=== PATIENT | male | born 1935 | race Caucasian/White ===

== ENCOUNTER 2017-06-20 08:44 | Outpatient (CLI) | payer MEDICARE, OTHER | END 2017-06-20 08:45 | disposition home or self-care (01) | LOC: DI 08:44 | PROVIDERS: ATTEND Internal Medicine | DX: R55 Syncope and collapse (principal); R01.1 Cardiac murmur, unspecified; I51.7 Cardiomegaly | CPT/HCPCS: 93306 ==

== ENCOUNTER 2017-12-21 09:57 | Emergency (ER) | payer MEDICARE, OTHER ==
--- NOTE | 2017-12-21 10:23 | ED Physician Documentation ---
PD HPI UPPER EXT INJURY - Stated complaint Stated Complaint: R HAND SWELLING - Chief complaint Chief Complaint: Ext Problem - History obtained from History obtained from: Patient - History of Present Illness Location: Right, Wrist, Hand Type of injury: Fall Where injury occurred: Other (walking his dog on a trail 2 days ago) Timing - onset: How many days ago (2) Timing - duration: Days (2) Timing - details: Gradual onset Pain level max: 4 Pain level now: 4 Improved by: Rest, Ice, Immobilization Worsened by: Moving, Palpating Associated symptoms: Swelling, Discolored (bruising). No: Weakness, Numbness, Tingling Contributing factors: Anticoagulated (xarelto) Recently seen: Not recently seen - Additonal information Additional information: pt is right handed Review of Systems Musculoskeletal: denies: Neck pain, Back pain Neurologic: denies: Focal weakness, Numbness, Head injury PD PAST MEDICAL HISTORY - Past Medical History Past Medical History: Yes Cardiovascular: Atrial fibrillation Endocrine/Autoimmune: None : Benign prostate hypertrophy - Past Surgical History Past Surgical History: Yes General: Cholecystectomy Ortho: Knee replacement - Present Medications Home Medications: Ambulatory Orders Medication Instructions Recorded Confirmed Hydrocodone/Acetaminophen [[place] 1 each PO Q6H PRN #15 tablet 02/05/16 5-325 Tablet] Tamsulosin [Flomax] 02/05/16 Furosemide [Lasix] 12/21/17 Potassium Citrate [Urocit-K] 12/21/17 Rivaroxaban [Xarelto] 12/21/17 diltiaZEM [Cardizem] 12/21/17 - Allergies Allergies/Adverse Reactions: Allergies Allergy/AdvReac Type Severity Reaction Status Date / Time Penicillins Allergy Itching Verified 02/05/16 12:49 - Social History Does the pt smoke?: No Smoking Status: Never smoker Does the pt drink ETOH?: Yes Does the pt have substance abuse?: No - Immunizations Immunizations are current?: Yes PD ED PE NORMAL - Vitals Vital signs reviewed: Yes - General General: Alert and oriented X 3, No acute distress - HEENT HEENT: Moist mucous membranes - Derm Derm: Warm and dry - Extremities Extremities: Other (R hand/wrist - Mild swelling to the dorsum of the hand with ecchymosis to the thenar eminence as well as mild tenderness over the distal radius and ulna. Neurovascularly intact. No evidence of compartment syndrome. Brisk cap refill) - Neuro Neuro: Alert and oriented X 3 Results - Vitals Vitals: Vital Signs - 24 hr 12/21/17 12/21/17 10:04 12:07 Temperature 36.7 C 36.1 C L Heart Rate 54 L 58 L Respiratory 16 18 Rate Blood Pressure 162/82 H 156/60 H O2 Saturation 99 97 Oxygen O2 Source Room air - Rads (name of study) R hand xray Radiology: Prelim report reviewed, EMP read contemporaneously, See rad report ( Findings suggest acute nondisplaced intra-articular fracture of the distal radius. ) R wrist xray Radiology: Prelim report reviewed, EMP read contemporaneously, See rad report ( Findings suggest acute nondisplaced intra-articular fracture of the distal radius. ) Procedures - Splint (location) R wrist Splint applied by: Physician, Tech Type of splint: Fiberglass, Short arm Other: Patient tolerated well, No complications, Neurovascular intact PD MEDICAL DECISION MAKING - ED course Complexity details: reviewed results, re-evaluated patient, considered differential, d/w patient, d/w family ED course: Patient is an 82-year-old male who presents to the emergency department after a fall 2 days ago, found to have a nondisplaced intra-articular fracture of the distal radius. Placed in a fiberglass splint will have him follow-up with his doctor for this. Neurovascularly intact. No evidence of occult scaphoid fracture. Patient counseled regarding signs and symptoms for which I believe and urgent re-evaluation would be necessary. Patient with good understanding of and agreement to plan and is comfortable going home at this time This document was made in part using voice recognition software. While efforts are made to proofread this document, sound alike and grammatical errors may occur. Departure - Departure Disposition: 01 Home, Self Care Clinical Impression: Distal radius fracture, right Qualifiers: Encounter type: initial encounter Fracture type: closed Fracture morphology: other intra-articular Qualified Code(s): S52.571A - Other intraarticular fracture of lower end of right radius, initial encounter for closed fracture Condition: Good Instructions: ED Fx Forearm Radius Ulna No Redu Requ Follow-Up: OSCAR MARIE MD [Primary Care Provider] - Within 3 Days (for wound check) Comments: You have a non-displaced intra-articular fracture of the right dital radius. This should heal well, but it is important to follow up closely with your dcotor. Discharge Date/Time: 12/21/17 12:25
--- NOTE | 2017-12-21 11:02 | XRAY Report ---
EXAMS: RIGHT HAND AND WRIST RADIOGRAPHY EXAM DATE: 12/21/2017 10:37 AM. CLINICAL HISTORY: Fall 2 days ago R hand/thumb pain. Radial side wrist pain. COMPARISON: None. TECHNIQUE: 3 views of the hand and 4 views of the wrist. 7 images are provided. FINDINGS: Bones: Linear lucency through the distal radial metaphysis which extends to the articular surface. No other evidence of acute fracture. Joints: No dislocation in the hand or wrist. Moderate degenerative changes. Soft Tissues: Regional soft tissue swelling. Vascular calcifications. IMPRESSION: Findings suggest acute nondisplaced intra-articular fracture of the distal radius. [facility] Referring Provider Line: [phone] SITE ID: [id number]
--- NOTE | 2017-12-21 11:02 | XRAY Preliminary Report ---
Exam: XR WRIST 4 VIEW RT IMPRESSION: Findings suggest acute nondisplaced intra-articular fracture of the distal radius. [facility] SITE ID: [id number]
--- NOTE | 2017-12-21 11:02 | XRAY Preliminary Report ---
Exam: XR HAND 3 VIEW RT IMPRESSION: Findings suggest acute nondisplaced intra-articular fracture of the distal radius. [facility] SITE ID: [id number]
[2017-12-21 12:07] VITALS: BP 156/60
== END 2017-12-21 12:25 | disposition home or self-care (01) ==
LOC: ED 09:57
DX: S52.571A Other intraarticular fracture of lower end of right radius, initial encounter for closed fracture (principal); W18.30XA Fall on same level, unspecified, initial encounter; Y93.K1 Activity, walking an animal; I48.91 Unspecified atrial fibrillation; Z79.01 Long term (current) use of anticoagulants
CPT/HCPCS: 29125; 99283

== ENCOUNTER 2018-08-20 13:42 | Outpatient (CLI) | payer MEDICARE, OTHER | END 2018-08-20 13:43 | disposition short-term general hospital (02) | LOC: EMS 13:42 | PROVIDERS: ATTEND Surgery | DX: R53.1 Weakness (principal) | CPT/HCPCS: A0425; A0429 ==

== ENCOUNTER 2019-07-22 11:23 | Outpatient (CLI) | payer MEDICARE, OTHER | END 2019-07-22 11:24 | disposition critical access hospital (66) | LOC: EMS 11:23 | PROVIDERS: ATTEND Surgery | DX: R55 Syncope and collapse (principal) | CPT/HCPCS: A0425; A0429 ==

== ENCOUNTER 2019-07-22 11:50 | Inpatient (IN) | payer MEDICARE, OTHER ==
[2019-07-22] MEDS ORDERED: SODIUM CHLORIDE 0.9% 1,000 ML IV ONE (12:28)
[2019-07-22 12:30] LABS: BASOPHILS % (AUTO) 0.4 %; EOSINOPHILS % (AUTO) 0.4 %; HGB - HEMOGLOBIN 13.7 g/dL (14.0-18.0); LYMPHOCYTES # (AUTO) 0.5 10^3/uL (1.5-3.5); LYMPHOCYTES % (AUTO) 5.4 %; MEAN CORPUSCULAR HEMOGLOBIN 29.7 pg (27.0-31.0); MEAN CORPUSCULAR HGB CONC 33.1 g/dL (32.0-36.0); MEAN CORPUSCULAR VOLUME 89.6 fL (80.0-94.0); MEAN PLATELET VOLUME 9.8 fL (7.4-11.4); MONOCYTES # (AUTO) 0.7 10^3/uL (0.0-1.0); MONOCYTES % (AUTO) 8.6 %; NEUTROPHILS # (AUTO) 7.1 10^3/uL (1.5-6.6); NEUTROPHILS % (AUTO) 84.8 %; PLT - PLATELET COUNT 172 10^3/uL (130-450); RED BLOOD COUNT 4.62 10^6/uL (4.70-6.10); RED CELL DISTRIBUTION WIDTH 13.2 % (12.0-15.0); WHITE BLOOD COUNT 8.4 x10^3/uL (4.8-10.8)
--- NOTE | 2019-07-22 12:34 | ED Physician Documentation ---
PD HPI SYNCOPE - Stated complaint Stated Complaint: DIZZY - Chief complaint Chief Complaint: Neuro - History obtained from History obtained from: Patient, Family (daughter [phone]), EMS - History of Present Illness Timing - onset: Today (84-year-old gentleman with atrial fibrillation recurrent problems with bile duct stones. He ran out of his diltiazem a couple of days ago and picked it up. He took a double dose at 630 this morning. Pretty quickly after that started to feel lightheaded and out of it. He feels better now as long as he is supine. Has not tried to get up yet. There is no a ssociated pain, trouble breathing, chest pain, pedal edema. Reported by paramedics a temperature of 100. He denies cough, shortness of breath, recurrent urinary complaints but does note a history of dizziness due to UTI in the past.) Review of Systems Ten Systems: 10 systems reviewed and negative Constitutional: denies: Fever, Chills Cardiac: denies: Chest pain / pressure, Palpitations Respiratory: denies: Dyspnea, Cough GI: denies: Abdominal Pain, Nausea, Vomiting, Diarrhea PD PAST MEDICAL HISTORY - Past Medical History Past Medical History: Yes Cardiovascular: Atrial fibrillation Endocrine/Autoimmune: None : Benign prostate hypertrophy - Past Surgical History Past Surgical History: Yes General: Cholecystectomy Ortho: Knee replacement - Present Medications Home Medications: Ambulatory Orders Medication Instructions Recorded Confirmed Hydrocodone/Acetaminophen [[place] 1 each PO Q6H PRN #15 tablet 02/05/16 5-325 Tablet] Tamsulosin [Flomax] 02/05/16 Furosemide [Lasix] 12/21/17 Potassium Citrate [Urocit-K] 12/21/17 Rivaroxaban [Xarelto] 12/21/17 diltiaZEM [Cardizem] 12/21/17 - Allergies Allergies/Adverse Reactions: Allergies Allergy/AdvReac Type Severity Reaction Status Date / Time Penicillins Allergy Itching Verified 07/22/19 12:10 - Social History Does the pt smoke?: No Smoking Status: Never smoker Does the pt drink ETOH?: Yes Does the pt have substance abuse?: No - Family History Family history: reports: Non contributory - Immunizations Immunizations are current?: Yes PD ED PE NORMAL - Vitals Vital signs reviewed: Yes - General General: Alert and oriented X 3, No acute distress - HEENT HEENT: PERRL, EOMI - Neck Neck: Supple, no meningeal sign, No bony TTP - Cardiac Cardiac: RRR, Other (2/6 ANA LAURA LUSB) - Respiratory Respiratory: No respiratory distress, Clear bilaterally - Abdomen Abdomen: Soft, Non tender - Back Back: No CVA TTP, No spinal TTP - Derm Derm: Normal color, Warm and dry - Extremities Extremities: No edema, No calf tenderness / cord - Neuro Neuro: Alert and oriented X 3, Normal speech Results - Vitals Vitals: Vital Signs - 24 hr 07/22/19 07/22/19 07/22/19 11:53 14:45 15:45 Temperature 37.2 C 37.7 C H Heart Rate 64 76 Respiratory 18 16 Rate Blood Pressure 198/68 H 150/63 H O2 Saturation 96 97 07/22/19 07/22/19 07/22/19 16:05 17:55 18:00 Temperature 102.8 C H Heart Rate 95 66 67 Respiratory 20 12 Rate Blood Pressure 137/110 H 124/44 L O2 Saturation 90 L 94 07/22/19 07/22/19 07/22/19 18:15 19:01 20:56 Temperature 39.3 C H Heart Rate 63 55 L 50 L Respiratory 16 14 16 Rate Blood Pressure 120/46 L 114/38 L 135/51 H O2 Saturation 97 98 97 07/22/19 21:52 Temperature 37.1 C Heart Rate Respiratory Rate Blood Pressure O2 Saturation Oxygen O2 Source Room air - EKG (time done) 1202 Rate: Rate (enter#) (62) Rhythm: NSR [place]: Normal Intervals: Prolonged FL Ischemia: Non specific changes Computer interpretation: Agree with computer - Labs Labs: Laboratory Tests 07/22/19 07/22/19 07/22/19 12:15 12:15 12:15 WBC 8.4 RBC 4.62 L Hgb 13.7 L Hct 41.4 L MCV 89.6 MCH 29.7 MCHC 33.1 RDW 13.2 Plt Count 172 MPV 9.8 Neut # (Auto) 7.1 H Lymph # (Auto) 0.5 L [place] # (Auto) 0.7 Eos # (Auto) 0.0 Baso # (Auto) 0.0 Absolute Nucleated RBC 0.00 Nucleated RBC % 0.0 Sodium 134 L Potassium 4.3 Chloride 99 L Carbon Dioxide 27 Anion Gap 8.0 BUN 17 Creatinine 1.0 Estimated GFR (MDRD) 72 L Glucose 129 H Lactic Acid Calcium 9.4 Total Bilirubin 0.7 AST 30 ALT 29 Alkaline Phosphatase 76 Troponin I High Sens 23.3 H* B-Natriuretic Peptide Total Protein 7.3 Albumin 4.1 Globulin 3.2 Albumin/Globulin Ratio 1.3 Lipase 30 Urine Color Urine Clarity Urine pH Ur Specific [place] Urine Protein Urine Glucose (UA) Urine Ketones Urine Occult Blood Urine Nitrite Urine Bilirubin Urine Urobilinogen Ur Leukocyte Esterase Ur Microscopic Review Urine Culture Comments Influenza A (Rapid) Influenza B (Rapid) 07/22/19 07/22/19 07/22/19 14:19 14:31 16:05 WBC RBC Hgb Hct MCV MCH MCHC RDW Plt Count MPV Neut # (Auto) Lymph # (Auto) [place] # (Auto) Eos # (Auto) Baso # (Auto) Absolute Nucleated RBC Nucleated RBC % Sodium Potassium Chloride Carbon Dioxide Anion Gap BUN Creatinine Estimated GFR (MDRD) Glucose Lactic Acid Calcium Total Bilirubin AST ALT Alkaline Phosphatase Troponin I High Sens 28.8 H* B-Natriuretic Peptide Total Protein Albumin Globulin Albumin/Globulin Ratio Lipase Urine Color YELLOW Urine Clarity CLEAR Urine pH 8.5 H Ur Specific [place] 1.015 Urine Protein TRACE Urine Glucose (UA) NEGATIVE Urine Ketones TRACE Urine Occult Blood NEGATIVE Urine Nitrite NEGATIVE Urine Bilirubin NEGATIVE Urine Urobilinogen 1 (NORMAL) Ur Leukocyte Esterase NEGATIVE Ur Microscopic Review NOT INDICATED Urine Culture Comments NOT INDICATED Influenza A (Rapid) Negative Influenza B (Rapid) Negative 07/22/19 07/22/19 07/22/19 16:13 21:10 21:10 WBC 9.1 RBC 4.13 L Hgb 12.1 L Hct 37.1 L MCV 89.8 MCH 29.3 MCHC 32.6 RDW 13.2 Plt Count 149 MPV 9.3 Neut # (Auto) 7.2 H Lymph # (Auto) 0.7 L [place] # (Auto) 1.1 H Eos # (Auto) 0.0 Baso # (Auto) 0.0 Absolute Nucleated RBC 0.00 Nucleated RBC % 0.0 Sodium 135 Potassium 4.3 Chloride 103 Carbon Dioxide 24 Anion Gap 8.0 BUN 16 Creatinine 0.9 Estimated GFR (MDRD) 81 L Glucose 151 H Lactic Acid 4.4 H* Calcium 8.3 L Total Bilirubin 0.9 AST 42 ALT 40 Alkaline Phosphatase 67 Troponin I High Sens B-Natriuretic Peptide Total Protein 6.0 L Albumin 3.3 Globulin 2.7 Albumin/Globulin Ratio 1.2 Lipase 28 Urine Color Urine Clarity Urine pH Ur Specific [place] Urine Protein Urine Glucose (UA) Urine Ketones Urine Occult Blood Urine Nitrite Urine Bilirubin Urine Urobilinogen Ur Leukocyte Esterase Ur Microscopic Review Urine Culture Comments Influenza A (Rapid) Influenza B (Rapid) 07/22/19 07/22/19 21:10 21:10 WBC RBC Hgb Hct MCV MCH MCHC RDW Plt Count MPV Neut # (Auto) Lymph # (Auto) [place] # (Auto) Eos # (Auto) Baso # (Auto) Absolute Nucleated RBC Nucleated RBC % Sodium Potassium Chloride Carbon Dioxide Anion Gap BUN Creatinine Estimated GFR (MDRD) Glucose Lactic Acid 0.7 Calcium Total Bilirubin AST ALT Alkaline Phosphatase Troponin I High Sens B-Natriuretic Peptide 365 H Total Protein Albumin Globulin Albumin/Globulin Ratio Lipase Urine Color Urine Clarity Urine pH Ur Specific [place] Urine Protein Urine Glucose (UA) Urine Ketones Urine Occult Blood Urine Nitrite Urine Bilirubin Urine Urobilinogen Ur Leukocyte Esterase Ur Microscopic Review Urine Culture Comments Influenza A (Rapid) Influenza B (Rapid) - Rads (name of study) 2v chest Radiology: EMP read contemporaneously (Possible right hilar mass) CT A/P Radiology: EMP read contemporaneously (pneumobilia constipation, enlg prostate, 10mm RML nodule needing followup) PD MEDICAL DECISION MAKING - ED course ED course: 84-year-old gentleman with presyncope after taking a double dose of diltiazem this morning. There was no chest pain or trouble breathing. Work-up was negative except for a very mildly elevated troponin which was repeated after 2 hours and went up a little bit and therefore the case was discussed by phone with Dr. Campbell on-call for his risk developer in [place] who felt that given the lack of angina etc. the elevation was so mild that it could be safely ignored but should follow-up with his risk developer as an outpatient. However subsequent to that he became quite febrile and having Rigors, lactate and a flu swab were sent and the discharge was held. He was administered Tyleno l. Flu swab was negative, lactate was 4-1/2. He also became hypoxic down to 90 with a [address] showing pneumobilia of unclear age, I presume this is old from prior manipulation of the bile duct, however there are no priors here to compare it with. Case discussed by phone with Dr. Knowles, the surgeon who recommended at least finding out if the pneumobilia was new or old with prior records from [place] and also briefly with the hospitalist here, Dr. Campos who felt that given the complexity of the case he should probably be transferred regardless of the acuity of the pneumobilia given the likely need for GI consultation. Somewhere in there he was administered IV fluids, cefepime, vancomycin, and Flagyl for unknown source sepsis. The fluids were stopped as he became hypoxic though. There is a significant delay in potential transfer to [place] because beds were "tight." They were originally called around 6 PM. As such repeat labs were ordered showing mild hypocalcemia, significant improvement in the lactic acidosis. Still no elevation in the liver enzymes. At about 9:50 PM I spoke with Dr. Wilks, the hospitalist in [place]. He was not sure that GI would need to intervene and if so he was actually wondering if they would actually have ERCP coverage tomorrow because I guess they do not have ERCP coverage every day. He encouraged me to talk with the GI physician on- call which is reasonable and the transfer center is paging that person. I spoke with Dr. Alicia, on-call GI in [place] who reviewed his records and we discussed his labs and findings from today. Dr. Alicia felt like he did not need any GI intervention at this juncture, nor did he need to be transferred. He does recommend following the liver enzymes in case they bump but they were normal at this point. On his review of the old work-up, the pneumobilia is chronic and they have seen it on several imaging studies there. Spoke with Dr. Betts for admission here at 11 PM. Updated the daughter by phone so she knows not to go to [place] tomorrow. - Critical Care Time(min): 40 Time Includes: Direct patient care, Review records, Reassess patient, Document care, Coordinate care, Medical consult, Family consult for tx dec Data interpretation: Labs, Pulse ox Procedures excluded from critical care time: EKG Departure - Departure Disposition: 66 [facility] DC/Xfer Clinical Impression: Near syncope, Pneumobilia Sepsis Qualifiers: Sepsis type: sepsis due to unspecified organism Sepsis acute organ dysfunction status: without acute organ dysfunction Qualified Code(s): A41.9 - Sepsis, unspecified organism Condition: Serious Record reviewed to determine appropriate education?: Yes Instructions: ED Near Syncope Unkn Comments: Followup with Dr Queen, next available appointment. Return for New or worsening symptoms. Do not double up on your medications again. Drink plenty fluids. You have a middle lobe lung nodule, please follow up with your PCP to discuss follow up imaging.
[2019-07-22 12:41] LABS: ALBUMIN 4.1 g/dL (3.2-5.5); ALBUMIN/GLOBULIN RATIO 1.3 (1.0-2.2); BILIRUBIN,TOTAL 0.7 mg/dL (0.2-1.0); CALCIUM 9.4 mg/dL (8.5-10.3); TOTAL PROTEIN 7.3 g/dL (6.7-8.2)
--- NOTE | 2019-07-22 13:55 | XRAY Report ---
Reason: fever Procedure Date: 07/22/2019 Accession Number: [id number] / [id number] Procedure: XR - Chest 2 View X-Ray CPT Code: 04307 Final Report FULL RESULT: EXAM: CHEST RADIOGRAPHY EXAM DATE: 07/22/2019 01:12 PM. CLINICAL HISTORY: Fever. COMPARISON: XR ACUTE ABDOMEN SERIES 11/05/2012 12:11 AM. TECHNIQUE: 2 views. FINDINGS: Lungs/Pleura: Lung lungs are low. Linear basilar opacities unchanged and could reflect atelectasis or possibly mild infection.. No other focal consolidation. No pneumothorax. No pleural effusion is seen. Mediastinum: Stable heart and mediastinum. Right hilar nodularity could reflect superposition of vessels. Other: None. IMPRESSION: 1. Low lung volumes with linear basilar opacities that could reflect atelectasis or possibly mild pneumonia. 2. Apparent right hilar nodularity could reflect superimposition of vessels. Nonemergent follow-up with chest CT could be obtained to exclude possibility of hilar mass. [facility]
[2019-07-22 14:54] LABS: BILIRUBIN,URINE NEGATIVE (NEGATIVE); GLUCOSE, URINE (UA) NEGATIVE (NEGATIVE); KETONES,URINE (UA) TRACE mg/dL (NEGATIVE); LEUKOCYTE ESTERASE, URINE NEGATIVE (NEGATIVE); NITRITE,URINE NEGATIVE (NEGATIVE); OCCULT BLOOD,URINE NEGATIVE (NEGATIVE); PH,URINE 8.5 PH (5.0-7.5); PROTEIN,URINE TRACE mg/dL (NEGATIVE); UROBILINOGEN,URINE 1 (NORMAL) E.U./dL (NORMAL)
[2019-07-22 14:55] LABS: CLARITY,URINE CLEAR (CLEAR)
[2019-07-22] MEDS ORDERED: ACETAMINOPHEN 325 MG TABLET PO STA ×2 (16:02→20:54)
[2019-07-22] MEDS ORDERED: LACTATED RINGERS 2,449.41 ML IV STA (16:37)
[2019-07-22] MEDS ORDERED: VANCOMYCIN INJ 1.5 GM in SODIUM CHLORIDE 0.9% 500 ML IV STA (16:40)
[2019-07-22] MEDS ORDERED: CEFEPIME 2 GM in SODIUM CHLORIDE 0.9% MINIBAG 100 ML IV STA (16:40)
[2019-07-22] MEDS ORDERED: ONDANSETRON 4 MG/2 ML VIAL IVP STA (16:44)
[2019-07-22] MEDS ORDERED: IOVERSOL 320 100 ML VIAL IVP ONE ×2 (16:46→17:48)
--- NOTE | 2019-07-22 18:06 | CT Report ---
Reason: IV only, abd pain fever Procedure Date: 07/22/2019 Accession Number: [id number] / [id number] Procedure: CT - Abdomen/Pelvis W CPT Code: Final Report FULL RESULT: EXAM: CT ABDOMEN AND PELVIS EXAM DATE: 07/22/2019 05:23 PM. CLINICAL HISTORY: IV only, abd pain fever. COMPARISONS: None. TECHNIQUE: Routine helical CT imaging was performed through the abdomen and pelvis. IV contrast: OPTI 320 100ML. Enteric contrast: No. Reconstructions: Coronal and sagittal. In accordance with CT protocol optimization, one or more of the following dose reduction techniques were utilized for this exam: automated exposure control, adjustment of mA and/or KV based on patient size, or use of iterative reconstructive technique. FINDINGS: Lung Bases: There is a right middle lobe round pulmonary nodule measuring 10 mm in diameter. Liver: There is mild to moderate intrahepatic biliary dilatation. There is pneumobilia within the liver. Left lobe of the liver is small in size. Gallbladder/Bile Ducts: Gallbladder is absent. There is fluid and gas within the common bile duct. Common bile duct measures up to 16 mm in diameter. Spleen: Normal. Pancreas: Normal. Adrenal Glands: Normal. Kidneys: Normal. No masses or hydronephrosis. Peritoneal Cavity/Bowel: The stomach and small bowel appear nondilated. There are scattered increased stool present throughout the colon. No mechanical bowel obstruction or transition zone. No free air or abscess. Pelvic Organs: Urinary bladder is unremarkable. The prostate appears enlarged measuring 50 x 72 x 64 mm. There are bilateral fat-containing inguinal hernias. Vasculature: There is moderate calcification of the abdominal aorta. Bones: There is chronic moderate degenerative disk disease of the mid and upper lumbar spine. Other: None. IMPRESSION: 1. Biliary dilatation and pneumobilia in the setting of prior cholecystectomy. Findings could represent the sequela of sphincterotomy or other biliary procedure. 2. Constipation. 3. No abscess. No other localizing acute inflammatory process in the abdomen or pelvis. 4. Enlarged prostate. 5. Bilateral fat-containing inguinal hernias. 6. 10 mm incidental right middle lobe lung nodule. Differential diagnosis including inflammatory nodular pneumonia versus old granulomatous disease versus bronchogenic carcinoma. Consider 3 month follow-up noncontrast chest CT, unless other imaging can document stability. [facility]
[2019-07-22] MEDS ORDERED: metroNIDAZOLE 500 MG/100 ML 500 MG/100 ML BAG IV ONE (18:16)
[2019-07-22 21:14] LABS: BASOPHILS % (AUTO) 0.3 %; HGB - HEMOGLOBIN 12.1 g/dL (14.0-18.0); LYMPHOCYTES # (AUTO) 0.7 10^3/uL (1.5-3.5); LYMPHOCYTES % (AUTO) 7.2 %; MEAN CORPUSCULAR HEMOGLOBIN 29.3 pg (27.0-31.0); MEAN CORPUSCULAR HGB CONC 32.6 g/dL (32.0-36.0); MEAN CORPUSCULAR VOLUME 89.8 fL (80.0-94.0); MEAN PLATELET VOLUME 9.3 fL (7.4-11.4); MONOCYTES # (AUTO) 1.1 10^3/uL (0.0-1.0); NEUTROPHILS # (AUTO) 7.2 10^3/uL (1.5-6.6); NEUTROPHILS % (AUTO) 80.1 %; PLT - PLATELET COUNT 149 10^3/uL (130-450); RED BLOOD COUNT 4.13 10^6/uL (4.70-6.10); RED CELL DISTRIBUTION WIDTH 13.2 % (12.0-15.0); WHITE BLOOD COUNT 9.1 x10^3/uL (4.8-10.8)
[2019-07-22 21:28] LABS: ALBUMIN 3.3 g/dL (3.2-5.5); ALBUMIN/GLOBULIN RATIO 1.2 (1.0-2.2); BILIRUBIN,TOTAL 0.9 mg/dL (0.2-1.0); CALCIUM 8.3 mg/dL (8.5-10.3); CREATININE 0.9 mg/dL (0.6-1.2)
[2019-07-22] MEDS ORDERED: ONDANSETRON 4 MG/2 ML VIAL IVP PRN (23:21)
[2019-07-22] MEDS ORDERED: SODIUM CHLORIDE FLUSH 0.9% 10 ML SYRINGE IVP PRN (23:21)
[2019-07-22] MEDS ORDERED: ACETAMINOPHEN 325 MG TABLET PO PRN (23:21)
--- NOTE | 2019-07-22 23:38 | HISTORY & PHYSICAL EXAMINATION ---
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 He states he has been in his usual state of health this past few days. He had run out of his diltiazem a couple of days ago and so he picked it up from the pharmacy and took an extra dose this morning. He also takes flecainide but he would cannot recall what the dose of it is and that he only takes it daily. He is on Xarelto for anticoagulation but he has not taken that today. He said he felt well initially but a couple hours later shakiness began. He denied any fevers or chills along with no chest pain, dyspnea, nausea, vomiting. He also denied dizziness and lightheadedness. He states he has no abdominal pain or dysuria. He states that he currently feels back to his baseline. He did have the flu vaccine this year. He states he has had similar episodes of shakiness in the past and it was associated with sepsis. He states his last episode of sepsis was secondary to his gallbladder and liver. He cannot recall when this episode was. He did state that he underwent biliary stenting on June 24 at [place]. His caregiver assisted living is Dr. Wall and he has not followed up since that time. He had his gallbladder removed in his early 30s due to multiple gallstones. He states he did well for quite a period of time up until about the last 10 to 15 years when he has had multiple endoscopies and interventions for biliary obstruction. Upon his arrival to the emergency department, he was found to be afebrile with a temperature of 37.2. Heart rate was 64. He was initially hypertensive with a systolic blood pressure of 198/68. He was not tachypneic and saturating well on room air. Initial labs were unremarkable except for high-sensitivity troponin of 23.3. His EKG at that time showed a sinus rhythm with a prolonged GA interval. There were no obvious ischemic changes. Repeat troponin approximately 2 hours later was increased to 28.8. 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 The patient was about to be discharged home when he developed a fever of 39.3 with associated rigors. Repeat labs were drawn which were once again unremarkable except for a lactic acid of 4.4. He was given vancomycin, cefepime, Flagyl IV and IV hydration. He then became hypoxic and so the IV fluids were discontinued. A CT of the abdomen and pelvis was then performed which showed biliary dilatation and pneumobilia as well as a 10 mm incidental right middle lobe lung nodule. The emergency room physician then spoke with gastroenterology at [place] regarding transfer. The caregiver assisted living discussed the case with the ER physician and felt that transfer was not ivan anted at this time as the patient's LFTs are within normal limits and that no intervention will be done. Environmental Science Technician reviewed prior imaging and states pneumobilia is chronic and has been present on multiple prior imaging studies per. He recommended admission and trending of the LFTs. Given this recommendation, medicine was consulted for admission. I did speak with the patient regarding goals of care and he would like to be a full code at this time. History - Past Medical History Cardiovascular: reports: Atrial fibrillation Respiratory: reports: None Neuro: reports: None Endocrine/Autoimmune: reports: None GI: reports: Other (Biliary obstruction) : reports: Benign prostate hypertrophy MRSA Hx?: No - Past Surgical History General: reports: Cholecystectomy, EGD, Other (Multiple ERCPs with biliary stenting) Ortho: reports: Knee replacement - Family & Social History Family History Comment/Other: He reports his father from sepsis. His mother from a myocardial infarction. He reports no other family history. Living arrangement: At home Living Situation: Alone Social History Notes: He lives alone at home with his dog. 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 He is a non-smoker and has never smoked in his life. He also does not drink alcohol. - Substance History Use: Uses substance without health or social issues: NONE - POLST Patient has POLST: No Meds/Allgy - Home Medications Home Medications: Ambulatory Orders Medication Instructions Recorded Confirmed Hydrocodone/Acetaminophen [[place] 1 each PO Q6H PRN #15 tablet 02/05/16 5-325 Tablet] Tamsulosin [Flomax] 02/05/16 Furosemide [Lasix] 12/21/17 Potassium Citrate [Urocit-K] 12/21/17 Rivaroxaban [Xarelto] 12/21/17 diltiaZEM [Cardizem] 12/21/17 Flecainide [Tambocar] 07/22/19 - Allergies Allergies/Adverse Reactions: Allergies Allergy/AdvReac Type Severity Reaction Status Date / Time Penicillins Allergy Itching Verified 07/22/19 12:10 Review of Systems - Constitutional Constitutional: reports: Other (Rigors). denies: Fatigue, Fever, Chills, Malaise, Weakness, Poor appetite - Cardiovascular Cariovascular: denies: Palpitations, Chest pain, Lightheadedness, Exertional dyspnea, Decr. exercise tolerance - Respiratory Respiratory: denies: Cough, SOB at rest, SOB with exertion - Gastrointestinal Gastrointestinal: denies: Abdominal pain, Constipation, Diarrhea, Change in bowel habits, Nausea, Vomiting - Genitourinary Genitourinary: denies: Dysuria, Frequency, Urgency, Hematuria - Musculoskeletal Musculoskeletal: denies: Muscle weakness - Integumentary Integumentary: denies: Rash - Neurological Neurological: denies: General weakness, Focal weakness, Dizziness - All Other Systems All Other Systems: reports: Reviewed and negative Prior Level of Functionality: He lives alone and is independent with his ADLs. Exam - Vital Signs Reviewed Vital Signs: Yes Vital Signs: Vital Signs x48h Temp Pulse Resp BP Pulse Ox 07/22/19 21:52 37.1 C 07/22/19 20:56 50 L 16 135/51 H 97 07/22/19 19:01 39.3 C H 55 L 14 114/38 L 98 07/22/19 18:15 63 16 120/46 L 97 07/22/19 18:00 67 12 124/44 L 94 07/22/19 17:55 66 90 L 07/22/19 16:05 102.8 C H 95 20 137/110 H 07/22/19 15:45 37.7 C H - Physical Exam General Appearance: positive: No acute distress, Alert Eyes Bilateral: positive: Normal inspection ENT: positive: ENT inspection nml Neck: positive: Nml inspection Respiratory: positive: No respiratory distress, Breath sounds nml. negative: Wheezes, Rales, Rhonchi Cardiovascular: positive: Regular rate & rhythm, No murmur, Bradycardia. negative: Irregularly irregular, Tachycardia, Systolic murmur, Diastolic murmur Abdomen: positive: Non-tender, No distention, Other (Prior abdominal incision scar noted.). negative: Tenderness, Guarding, Rebound Skin: positive: No rash, Warm, Dry Extremities: positive: Full ROM, No pedal edema Neurologic/Psychiatric: positive: Oriented x3. negative: Disoriented to person, Disoriented to place, Disoriented to time, Weakness Sepsis Event Note (H) - Evaluation Current Stage of Sepsis: Sepsis Possible source of Sepsis: positive: Unknown - Sepsis Criteria Sepsis Criteria: Recorded Temperature greater than 38.3C or Less than 36C, Metabolic: lactate > 2 mmol/L Conclusion/Plan - Problem List (1) Fever Conclusion/Plan: Although he does not quite meet SIRS criteria, the concern is for sepsis given his fever, elevated lactic acid, and rigors. His white count is within normal limits but he does have a left shift so this could be an early response to infection. There is no obvious source at this time as his urinalysis is unremarkable and influenza is negative. His chest x-ray is not really suggestive of pneumonia or infiltrate and he does not have a cough or dyspnea. CT of the abdomen/pelvis did show pneumobilia although after discussion with gastroenterology, this appears to be chronic. It is a little concerning that he states he has had similar symptoms in the past when he has had abdominal problems including biliary obstruction. We will start him on empiric antibiotic coverage with vancomycin, cefepime, Flagyl IV. We will follow-up his blood cultures. Trend his white count and monitor his LFTs. We will continue IV hydration with lactated Ringer's at 100 cc an hour as he is no longer hypoxic and is saturating 99% on room air. If he spikes another fever despite antibiotics, will start him on empiric Tamiflu for possible influenza despite the negative rapid influenza test Qualifiers: Fever type: unspecified Qualified Code(s): R50.9 - Fever, unspecified (2) Pneumobilia Conclusion/Plan: This is evident on the CT of the abdomen and pelvis. The emergency room physician did discuss this with gastroenterology at [place] and he states this is chronic. Given that his LFTs are normal, they do not feel transfer or intervention is warranted at this time. We will trend his LFTs and if they ri se, will discuss with gastroenterology once again regarding transfer. Will start him on a clear liquid diet for the time being. (3) Paroxysmal atrial fibrillation Conclusion/Plan: He is currently in a sinus rhythm. Although he did take an extra dose with Ca rdizem this morning, his heart rate was in the 70s when he presented to emergency department. He is now in the 50s and does dip down into the 40s while asleep. He is asymptomatic. Given his current heart rate, will hold his Cardizem for the time being. Will need to confirm Flecainide dose before resuming. We will continue to monitor him on telemetry. We will also hold his Xarelto for the time being in case his LFTs begin to rise as then he would require transfer and possible intervention. (4) Elevated troponin Conclusion/Plan: Troponins are elevated in the 20s but he is without chest pain and his EKG shows no signs of obvious ischemia. Suspect this is likely demand ischemia and given the concern for sepsis, this is likely the cause of the troponin leak. We will continue to trend his troponin and monitor on telemetry. (5) Right middle lobe pulmonary nodule Conclusion/Plan: This is an incidental finding on the CT of the abdomen and pelvis. Although he is a non-smoker, the concern is still for malignancy. I did discuss with the patient that he will need a repeat CT of the chest in 3 months. (6) BPH (benign prostatic hyperplasia) Conclusion/Plan: Stable. We will resume his home Flomax in the morning. - Lab Results Lab results reviewed: Yes Fish Bones: 07/22/19 21:10 07/22/19 21:10 - Diagnostic Imaging Results Diagnostic Imaging Results: positive: Final report reviewed - EKG Results EKG Interpreted Independently: Yes EKG Comparison: No prior EKG EKG Findings: His EKG shows sinus rhythm with a prolonged GA interval and no obvious ST segment changes. Core Measures - Anticipated LOS I expect patient to be DC'd or transferred within 96 hours.: Yes - Issues Hospital Issues and Management Plan: This is an 84-year-old gentleman admitted for suspected sepsis of unclear source at this time. Will initiate broad-spectrum antibiotics and follow-up with blood cultures. No obvious source at this time. He does have pneumobilia on imaging of the CT abdomen/pelvis and we will monitor his LFTs. - DVT/VTE - Prophylaxis VTE/DVT Device ordered at admit?: Yes VTE/DVT Prophylaxis med ordered at admit?: No Not Ordered - Medical Reason: Not indicated
[2019-07-22] MEDS ORDERED: VANCOMYCIN PER PHARMACY 100 GM in SODIUM CHLORIDE 0.9% 250 ML IV SCH (23:45)
[2019-07-23] MEDS: SODIUM CHLORIDE FLUSH 0.9% 10 ML SYRINGE IVP SCH ×3 (00:25→17:52)
[2019-07-23] MEDS: LACTATED RINGERS 1,000 ML IV SCH ×3 (00:25→22:14)
[2019-07-23] MEDS: metroNIDAZOLE 500 MG/100 ML 500 MG/100 ML BAG IV SCH ×3 (02:49→20:37)
[2019-07-23] MEDS: CEFEPIME 2 GM in SODIUM CHLORIDE 0.9% MINIBAG 100 ML IV SCH ×2 (05:18→17:52)
[2019-07-23 05:38] LABS: BASOPHILS # (AUTO) 0.1 10^3/uL (0.0-0.1); BASOPHILS % (AUTO) 0.5 %; EOSINOPHILS # (AUTO) 0.1 10^3/uL (0.0-0.7); EOSINOPHILS % (AUTO) 0.7 %; HGB - HEMOGLOBIN 12.3 g/dL (14.0-18.0); LYMPHOCYTES # (AUTO) 1.1 10^3/uL (1.5-3.5); LYMPHOCYTES % (AUTO) 10.5 %; MEAN CORPUSCULAR HEMOGLOBIN 28.7 pg (27.0-31.0); MEAN CORPUSCULAR HGB CONC 32.1 g/dL (32.0-36.0); MEAN CORPUSCULAR VOLUME 89.5 fL (80.0-94.0); MEAN PLATELET VOLUME 9.6 fL (7.4-11.4); MONOCYTES # (AUTO) 0.9 10^3/uL (0.0-1.0); MONOCYTES % (AUTO) 9.3 %; NEUTROPHILS % (AUTO) 78.5 %; PLT - PLATELET COUNT 156 10^3/uL (130-450); RED BLOOD COUNT 4.28 10^6/uL (4.70-6.10); RED CELL DISTRIBUTION WIDTH 13.5 % (12.0-15.0); WHITE BLOOD COUNT 10.2 x10^3/uL (4.8-10.8)
[2019-07-23 05:54] LABS: HB2 TOTAL 12.6 g/dL; HEMOGLOBIN A1C 0.51 g/dL; HEMOGLOBIN A1C % 5.9 % (4.6-6.2)
[2019-07-23 05:59] LABS: ALBUMIN 3.2 g/dL (3.2-5.5); BILIRUBIN,DIRECT 0.1 mg/dL (0.1-0.5); BILIRUBIN,TOTAL 0.7 mg/dL (0.2-1.0); CALCIUM 8.2 mg/dL (8.5-10.3); CREATININE 0.9 mg/dL (0.6-1.2); MAGNESIUM 2.2 mg/dL (1.7-2.8); PHOSPHORUS 2.8 mg/dL (2.5-4.6)
[2019-07-23] MEDS ORDERED: ASPIRIN CHEW 81 MG TABLET PO STA (06:21)
[2019-07-23] MEDS ORDERED: GADOBUTROL 10 MMOL/10 ML VIAL ONE (11:51)
[2019-07-23] MEDS ORDERED: VANCOMYCIN INJ 1 GM in SODIUM CHLORIDE 0.9% 250 ML IV SCH (12:00)
--- NOTE | 2019-07-23 13:00 | PHARMACY PROGRESS NOTE ---
- Best Possible Medication History Admit Date and Time: 07/22/19 1732 Processed by: Pharmacy Medication History completed: Yes Patient Interview: Completed Secondary Source(s): Physician records Patient used to take Potassium and Furosemide but has not had to take them and they are currently not on PCP medlist. As the person ultimately responsible for medication therapy, providers are able to order a medication from an existing home medication list in [facility] via the "Reconcile Routine" prior to Confirmation of that medication by sales support associate. Such practice is discouraged except when the physician, in their clinical judgment, deems that a medical need exists for a medication without regard to previous use.
--- NOTE | 2019-07-23 14:57 | Ultrasound Report ---
Reason: Sepsis. Biliary dilatation on CT. Procedure Date: 07/23/2019 Accession Number: [id number] / [id number] Procedure: US - Abdomen Complete CPT Code: Addended Final Report FULL RESULT: EXAM: ABDOMEN ULTRASOUND EXAM DATE: 07/23/2019 08:50 AM. CLINICAL HISTORY: Sepsis. Biliary dilatation on CT. COMPARISON: ABDOMEN/PELVIS W/ 07/22/2019 5:18 PM. TECHNIQUE: Real-time scanning was performed with static images obtained. FINDINGS: Liver: The liver is mildly enlarged with no focal lesions. 15.8 cm. Main portal vein flow: Hepatopetal. Gallbladder: Status post cholecystectomy with mild pneumobilia and mild intrahepatic biliary ductal dilatation. Biliary System: Common bile duct is not visualized. Pancreas: Not visualized. Kidneys: Right: 10.9 cm longitudinally. Normal. No contour-deforming mass, stones, or hydronephrosis. Simple appearing cystic structure in the right kidney measuring up to 12 x 10 x 7 mm. Left: 11.9 cm longitudinally. Normal. No contour-deforming mass, stones, or hydronephrosis. Spleen: 9.8 cm. Normal in size and echotexture. Aorta and Inferior Vena Cava: The proximal and mid aorta are not visualized. The distal aorta and visualized portion of the IVC are unremarkable. Other: None. IMPRESSION: 1. Status post cholecystectomy with mild intrahepatic biliary ductal dilatation and pneumobilia. This is seen to better advantage on the CT dated 07/22/2019. 2. No hydronephrosis or renal calculus. [facility] The call report notification system was initiated by Dr. Chelsy Anaya at 02:56 PM on 07/23/2019. ADDENDUM: 07/23/19 15:[address] Tariq by phone on 07/23/2019 at 3:02 PM ADDENDUM: 07/23/19 15:57 The above call report findings were discussed with Dr. Tariq by Dr. Chelsy Anaya at 03:57 PM on 07/23/2019.
--- NOTE | 2019-07-23 17:54 | DISCHARGE SUMMARY ---
Discharge Summary Admit Date: 07/22/19 Discharge Date: 07/23/19 Discharging Provider: Trell Joseph MD Code Status: Attempt Resuscitation Condition at Discharge: Poor Discharge Disposition: 02 Transfer Acute Care Hosp Discharge Facility Name: [facility] - DIAGNOSES Admission Diagnoses: 1. Fever 2. Pneumobilia 3. Paroxysmal atrial fibrillation 4. Elevated troponin 5. Right middle lobe pulmonary nodule 6. BPH Discharge Diagnoses with Status of Each Condition: 1. Gram-negative bacteremia: Guarded 2. Pneumobilia: Stable 3. Paroxysmal atrial fibrillation: Stable 4. Elevated troponin: Stable 5. Right middle lobe pulmonary nodule: Stable 6. 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 He states he has been in his usual state of health this past few days. He had run out of his diltiazem a couple of days ago and so he picked it up from the pharmacy and took an extra dose this morning. He also takes flecainide but he would cannot recall what the dose of it is and that he only takes it daily. He is on Xarelto for anticoagulation but he has not taken that today. He said he felt well initially but a couple hours later shakiness began. He denied any fevers or chills along with no chest pain, dyspnea, nausea, vomiting. He also denied dizziness and lightheadedness. He states he has no abdominal pain or dysuria. He states that he currently feels back to his baseline. He did have the flu vaccine this year. He states he has had similar episodes of shakiness in the past and it was associated with sepsis. He states his last episode of sepsis was secondary to his gallbladder and liver. He cannot recall when this episode was. He did state that he underwent biliary stenting on June 24 at [facility]. His wool washer feeder is Dr. Wall and he has not followed up since that time. He had his gallbladder removed in his early 30s due to multiple gallstones. He states he did well for quite a period of time up until about the last 10 to 15 years when he has had multiple endoscopies and interventions for biliary obstruction. Upon his arrival to the emergency department, he was found to be afebrile with a temperature of 37.2. Heart rate was 64. He was initially hypertensive with a systolic blood pressure of 198/68. He was not tachypneic and saturating well on room air. Initial labs were unremarkable except for high-sensitivity troponin of 23.3. His EKG at that time showed a sinus rhythm with a prolonged OK interval. There were no obvious ischemic changes. Repeat troponin approximately 2 hours later was increased to 28.8. The emergency room physician spoke with Cardiology in [place] who stated that given his lack of chest pain and that the elevation is minimal, he can follow-up with his transition mgr rn on an outpatient basis. The patient was about to be discharged home when he developed a fever of 39.3 with associated rigors. Repeat labs were drawn which were once again unremarkable except for a lactic acid of 4.4. He was given vancomycin, cefepime, Flagyl IV and IV hydration. He then became hypoxic and so the IV fluids were discontinued. A CT of the abdomen and pelvis was then performed which showed biliary dilatation and pneumobilia as well as a 10 mm incidental right middle lobe lung nodule. The emergency room physician then spoke with gastroenterology at [facility] regarding transfer. The wool washer feeder discussed the case with the ER physician and felt that transfer was not warranted at this time as the patient's LFTs are within normal limits and that no intervention will be done. Senior Loss Control Specialist reviewed prior imaging and states pneumobilia is chronic and has been present on multiple prior imaging studies per. He recommended admission and trending of the LFTs. Given this recommendation, medicine was consulted for admission. I did speak with the patient regarding goals of care and he would like to be a full code at this time. - HOSPITAL COURSE Hospital Course: Patient was initially admitted with fevers and chills. His lab work revealed a lactic acid of 4.4 and a mildly elevated troponin concerning for sepsis. Patient's blood cultures were drawn and came back as gram-negative bacilli in 2 out of 2 bottles. Patient was placed on vancomycin, cefepime and Flagyl. Patient's lactic acid improved and patient had impaired to have overall improvement with no further fevers. I consulted gastroenterology at [facility] this afternoon and spoke with Dr. Roe who then spoke with the patient's wool washer feeder Dr. 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 The patient did have a CT of his abdomen pelvis which did not show any other source of bacteremia such as an abscess. He also had a normal UA. Dr. Roe accepted the patient for transfer and asked that the hospitalist team at [facility] admit the patient. I spoke with Dr. Painting hospitalist at [facility] and he accepted the patient. The plan is for the patient to get an ERCP done tomorrow. For now the patient will continue on IV antibiotics. - ALLERGIES Allergies/Adverse Reactions: Allergies Allergy/AdvReac Type Severity Reaction Status Date / Time Penicillins Allergy Itching Verified 07/22/19 12:10 - MEDICATIONS Home Medications: Ambulatory Orders Medication Instructions Recorded Confirmed Tamsulosin [Flomax] 0.4 mg PO QPM 02/05/16 07/23/19 Flecainide [Tambocar] 50 mg PO BID 07/22/19 07/23/19 Atorvastatin [Lipitor] 10 mg PO QPM 07/23/19 07/23/19 Rivaroxaban [Xarelto] 20 mg PO QDDINNER 07/23/19 07/23/19 [id number] CD [Cardizem Cd] 120 mg PO DAILY 07/23/19 07/23/19 - PHYSICAL EXAM AT DISCHARGE General Appearance: positive: No acute distress, Alert Eyes Bilateral: positive: Normal inspection, PERRL, EOMI, No lid inflammation, Conjunctivae nml, No scleral icterus ENT: positive: ENT inspection nml, Pharynx nml, No signs of dehydration. negative: Purulent nasal drainage, Pharyngeal erythema, Oral lesions Neck: positive: Nml inspection, Thyroid nml, No JVD, Trachea midline. negative: Thyromegaly, Lymphadenopathy (R), Lymphadenopathy (L), Stiff neck Respiratory: positive: Chest non-tender, No respiratory distress, Breath sounds nml. negative: Wheezes, Rales, Rhonchi Cardiovascular: positive: Regular rate & rhythm, No murmur, No gallop Peripheral Pulses: positive: 2+ Abdomen: positive: No organomegaly, Nml bowel sounds, No distention, Tenderness, Other (Mild epigastric tenderness). negative: Guarding, Rebound, Hepatomegaly Back: positive: Nml inspection. negative: CVA tenderness (R), CVA tenderness (L) Skin: positive: Color nml, No rash, Warm Extremities: positive: Non-tender, Full ROM, Nml appearance, No pedal edema Neurologic/Psychiatric: positive: Oriented x3, CN's nml (2-12), Motor nml, Sensation nml, Mood/affect nml - LABS Result Diagrams: 07/23/19 05:25 07/23/19 05:25 Other Lab Results: Laboratory Results WBC 10.2 x10^3/uL (4.8-10.8) 07/23/19 05:25 RBC 4.28 10^6/uL (4.70-6.10) L 07/23/19 05:25 Hgb 12.3 g/dL (14.0-18.0) L 07/23/19 05:25 Hct 38.3 % (42.0-52.0) L 07/23/19 05:25 MCV 89.5 fL (80.0-94.0) 07/23/19 05:25 MCH 28.7 pg (27.0-31.0) 07/23/19 05:25 MCHC 32.1 g/dL (32.0-36.0) 07/23/19 05:25 RDW 13.5 % (12.0-15.0) 07/23/19 05:25 Plt Count 156 10^3/uL (130-450) 07/23/19 05:25 MPV 9.6 fL (7.4-11.4) 07/23/19 05:25 Neut # (Auto) 8.0 10^3/uL (1.5-6.6) H 07/23/19 05:25 Lymph # (Auto) 1.1 10^3/uL (1.5-3.5) L 07/23/19 05:25 [place] # (Auto) 0.9 10^3/uL (0.0-1.0) 07/23/19 05:25 Eos # (Auto) 0.1 10^3/uL (0.0-0.7) 07/23/19 05:25 Baso # (Auto) 0.1 10^3/uL (0.0-0.1) 07/23/19 05:25 Absolute Nucleated RBC 0.00 x10^3/uL 07/23/19 05:25 Nucleated RBC % 0.0 /100WBC 07/23/19 05:25 Sodium 135 mmol/L (135-145) 07/23/19 05:25 Potassium 4.1 mmol/L (3.5-5.0) 07/23/19 05:25 Chloride 102 mmol/L (101-111) 07/23/19 05:25 Carbon Dioxide 27 mmol/L (21-32) 07/23/19 05:25 Anion Gap 6.0 (6-13) 07/23/19 05:25 BUN 15 mg/dL (6-20) 07/23/19 05:25 Creatinine 0.9 mg/dL (0.6-1.2) 07/23/19 05:25 Estimated GFR (MDRD) 81 (>89) L 07/23/19 05:25 Glucose 130 mg/dL (70-100) H 07/23/19 05:25 Glycated Hemoglobin 5.9 % (4.6-6.2) 07/23/19 05:25 Estim Average Glucose 123 (70-100) H 07/23/19 05:25 Lactic Acid 0.7 mmol/L (0.5-2.2) 07/22/19 21:10 Calcium 8.2 mg/dL (8.5-10.3) L 07/23/19 05:25 Phosphorus 2.8 mg/dL (2.5-4.6) 07/23/19 05:25 Magnesium 2.2 mg/dL (1.7-2.8) 07/23/19 05:25 Total Bilirubin 0.7 mg/dL (0.2-1.0) 07/23/19 05:25 Direct Bilirubin 0.1 mg/dL (0.1-0.5) 07/23/19 05:25 AST 36 IU/L (10-42) 07/23/19 05:25 ALT 37 IU/L (10-60) 07/23/19 05:25 Alkaline Phosphatase 62 IU/L (42-121) 07/23/19 05:25 Troponin I High Sens 133.8 ng/L (2.3-19.7) H* 07/23/19 09:10 B-Natriuretic Peptide 365 pg/mL (5-100) H 07/22/19 21:10 Total Protein 6.0 g/dL (6.7-8.2) L 07/23/19 05:25 Albumin 3.2 g/dL (3.2-5.5) 07/23/19 05:25 Globulin 2.8 g/dL (2.1-4.2) 07/23/19 05:25 Albumin/Globulin Ratio 1.2 (1.0-2.2) 07/22/19 21:10 Lipase 28 U/L (22-51) 07/22/19 21:10 Urine Color YELLOW 07/22/19 14:31 Urine Clarity CLEAR (CLEAR) 07/22/19 14:31 Urine pH 8.5 PH (5.0-7.5) H 07/22/19 14:31 Ur Specific [place] 1.015 (1.002-1.030) 07/22/19 14:31 Urine Protein TRACE mg/dL (NEGATIVE) 07/22/19 14:31 Urine Glucose (UA) NEGATIVE mg/dL (NEGATIVE) 07/22/19 14:31 Urine Ketones TRACE mg/dL (NEGATIVE) 07/22/19 14:31 Urine Occult Blood NEGATIVE (NEGATIVE) 07/22/19 14:31 Urine Nitrite NEGATIVE (NEGATIVE) 07/22/19 14:31 Urine Bilirubin NEGATIVE (NEGATIVE) 07/22/19 14:31 Urine Urobilinogen 1 (NORMAL) E.U./dL (NORMAL) 07/22/19 14:31 Ur Leukocyte Esterase NEGATIVE (NEGATIVE) 07/22/19 14:31 Ur Microscopic Review NOT INDICATED 07/22/19 14:31 Urine Culture Comments NOT INDICATED 07/22/19 14:31 Influenza A (Rapid) Negative (Negative) 07/22/19 16:05 Influenza B (Rapid) Negative (Negative) 07/22/19 16:05 - DIAGNOSTIC IMAGING Diagnostic Imaging Results: Final report reviewed - SEPSIS Current Stage of Sepsis: Sepsis Possible source of Sepsis: Unknown Sepsis Criteria: Recorded Temperature greater than 38.3C or Less than 36C, Metabolic: lactate > 2 mmol/L - FOLLOW UP Follow Up: With hospice at [facility]. - TIME SPENT Time Spent in Discharge (Minutes): 45
[2019-07-23] MEDS ORDERED: ALBUTEROL NEB 2.5 MG/3 ML INH ONE (23:10)
[2019-07-24 00:31] VITALS: BP 143/44
== END 2019-07-24 00:05 | disposition short-term general hospital (02) | DRG 872 ==
LOC: EDUNIT# → ED 11:50 → MS2 23:21
PROVIDERS: ADMIT Internal Medicine; ATTEND Internal Medicine
DX: A41.9 Sepsis, unspecified organism (principal); A41.51 Sepsis due to Escherichia coli [E. coli]; R55 Syncope and collapse; K83.3 Fistula of bile duct; R93.3 Abnormal findings on diagnostic imaging of other parts of digestive tract; R91.1 Solitary pulmonary nodule; E83.51 Hypocalcemia; R79.89 Other specified abnormal findings of blood chemistry; I48.91 Unspecified atrial fibrillation; E87.2 Acidosis; R00.1 Bradycardia, unspecified; Z87.19 Personal history of other diseases of the digestive system; R09.02 Hypoxemia; K83.8 Other specified diseases of biliary tract; Z87.440 Personal history of urinary (tract) infections; I48.0 Paroxysmal atrial fibrillation; N40.0 Benign prostatic hyperplasia without lower urinary tract symptoms; Z79.01 Long term (current) use of anticoagulants; Z79.899 Other long term (current) drug therapy; Z96.89 Presence of other specified functional implants; Z90.49 Acquired absence of other specified parts of digestive tract
CPT/HCPCS: 36415; 71046; 74177; 76700; 80048; 80053; 80076; 81003; 83036; 83605; 83690; 83735; 83880; 84100; 84484; 85025; 87040; 87181; 87275; 87276; 93005; 93306; 94640; 96361; 96365; 96366; 96367; 96375; 99285; 99291; A9270; J3370; J7120; Q9967; 81001; 87086

== ENCOUNTER 2019-08-28 12:07 | Emergency (ER) | payer MEDICARE, OTHER ==
[2019-08-28 12:17] VITALS: BP 115/85
--- NOTE | 2019-08-28 12:55 | ED Physician Documentation ---
PD HPI MALE - Stated complaint Stated Complaint: MALE - Chief complaint Chief Complaint: UTI - History obtained from History obtained from: Patient (84-year-old gentleman who was septic from biliary blockage status post stenting about a month ago now has 5 days of urinary frequency and dysuria with just tinged hematuria. No associated fevers or back pain. No history of large prostate or UTI.) Review of Systems Constitutional: denies: Fever, Chills, Fatigue GI: denies: Abdominal Pain, Nausea, Vomiting, Constipation, Diarrhea : reports: Dysuria, Frequency. denies: Hesitancy PD PAST MEDICAL HISTORY - Past Medical History Cardiovascular: Atrial fibrillation Respiratory: None Neuro: TIA Endocrine/Autoimmune: None GI: Other : Benign prostate hypertrophy Psych: None Derm: None - Past Surgical History Past Surgical History: Yes General: Cholecystectomy, EGD, Other Ortho: Knee replacement - Present Medications Home Medications: Ambulatory Orders Medication Instructions Recorded Confirmed Tamsulosin [Flomax] 0.4 mg PO QPM 02/05/16 07/23/19 Flecainide [Tambocar] 50 mg PO BID 07/22/19 07/23/19 Atorvastatin [Lipitor] 10 mg PO QPM 07/23/19 07/23/19 Rivaroxaban [Xarelto] 20 mg PO QDDINNER 07/23/19 07/23/19 [id number] CD [Cardizem Cd] 120 mg PO DAILY 07/23/19 07/23/19 Omeprazole 20 mg PO DAILY 08/28/19 08/28/19 Sulfamethoxazole/Trimethoprim 1 each PO BID 7 Days #14 tablet 08/28/19 [Sulfamethoxazole-Tmp Ds Tablet] - Allergies Allergies/Adverse Reactions: Allergies Allergy/AdvReac Type Severity Reaction Status Date / Time Penicillins Allergy Itching Verified 08/28/19 12:17 - Social History Does the pt smoke?: No Smoking Status: Never smoker Does the pt drink ETOH?: Yes Does the pt have substance abuse?: No - Immunizations Immunizations are current?: Yes - POLST Patient has POLST: No PD ED PE NORMAL - Vitals Vital signs reviewed: Yes - General General: Alert and oriented X 3, No acute distress - Abdomen Abdomen: Normal bowel sounds, Soft, Non tender - Back Back: No CVA TTP, No spinal TTP - Extremities Extremities: No edema, No calf tenderness / cord - Neuro Neuro: Alert and oriented X 3, Normal speech Results - Vitals Vitals: Vital Signs - 24 hr 08/28/19 12:13 Temperature 36.5 C Heart Rate 65 Respiratory 18 Rate Blood Pressure 115/85 H O2 Saturation 97 Oxygen O2 Source Room air - Labs Labs: Laboratory Tests 08/28/19 08/28/19 08/28/19 13:40 13:48 13:48 WBC 8.7 RBC 4.33 L Hgb 12.7 L Hct 39.4 L MCV 91.0 MCH 29.3 MCHC 32.2 RDW 13.6 Plt Count 228 MPV 9.1 Neut # (Auto) 6.8 H Lymph # (Auto) 0.9 L [place] # (Auto) 0.8 Eos # (Auto) 0.2 Baso # (Auto) 0.0 Absolute Nucleated RBC 0.00 Nucleated RBC % 0.0 Sodium 134 L Potassium 4.3 Chloride 99 L Carbon Dioxide 27 Anion Gap 8.0 BUN 17 Creatinine 0.8 Estimated GFR (MDRD) 93 Glucose 117 H Calcium 9.0 Urine Color YELLOW Urine Clarity HAZY Urine pH 7.5 Ur Specific [place] 1.015 Urine Protein NEGATIVE Urine Glucose (UA) NEGATIVE Urine Ketones NEGATIVE Urine Occult Blood NEGATIVE Urine Nitrite NEGATIVE Urine Bilirubin NEGATIVE Urine Urobilinogen 0.2 (NORMAL) Ur Leukocyte Esterase TRACE H Urine RBC 0-5 Urine WBC 6-10 H Ur Squamous Epith Cells FEW Squamous Urine Bacteria Few Ur Microscopic Review INDICATED Urine Culture Comments INDICATED PD MEDICAL DECISION MAKING - ED course ED course: 84-year-old gentleman with slight hematuria and some other symptoms consistent with a UTI which is consistent with his urinalysis. Renal function and bladder scan were checked without pertinent positive findings. Departure - Departure Disposition: 01 Home, Self Care Clinical Impression: Cystitis Condition: Good Record reviewed to determine appropriate education?: Yes Instructions: ED UTI Cystitis Male Prescriptions: Sulfamethoxazole/Trimethoprim [Sulfamethoxazole-Tmp Ds Tablet] 1 each PO BID 7 Days #14 tablet Comments: We will culture your urine, the results should be done in 48-72 hours. If an antibiotic change is necessary we will call you. Return if worse in the meantime, especially if you develop increasing flank pain, fevers, or cannot keep down the medication. Recheck with your doctor within the week. Prescription was e- prescribed to [facility] in [place].
[2019-08-28 13:44] LABS: BILIRUBIN,URINE NEGATIVE (NEGATIVE); GLUCOSE, URINE (UA) NEGATIVE (NEGATIVE); KETONES,URINE (UA) NEGATIVE (NEGATIVE); LEUKOCYTE ESTERASE, URINE TRACE (NEGATIVE); NITRITE,URINE NEGATIVE (NEGATIVE); OCCULT BLOOD,URINE NEGATIVE (NEGATIVE); PH,URINE 7.5 PH (5.0-7.5); PROTEIN,URINE NEGATIVE (NEGATIVE); UROBILINOGEN,URINE 0.2 (NORMAL) E.U./dL (NORMAL)
[2019-08-28 13:51] LABS: CLARITY,URINE HAZY (CLEAR)
[2019-08-28 13:54] LABS: BACTERIA,URINE Few /HPF (None Seen); RBC,URINE 0-5 /HPF (0-5); SQUAMOUS EPITHELIAL CELL,UR FEW Squamous (<= Few)
[2019-08-28 13:57] LABS: BASOPHILS % (AUTO) 0.5 %; EOSINOPHILS # (AUTO) 0.2 10^3/uL (0.0-0.7); HGB - HEMOGLOBIN 12.7 g/dL (14.0-18.0); LYMPHOCYTES # (AUTO) 0.9 10^3/uL (1.5-3.5); LYMPHOCYTES % (AUTO) 9.9 %; MEAN CORPUSCULAR HEMOGLOBIN 29.3 pg (27.0-31.0); MEAN CORPUSCULAR HGB CONC 32.2 g/dL (32.0-36.0); MEAN PLATELET VOLUME 9.1 fL (7.4-11.4); MONOCYTES # (AUTO) 0.8 10^3/uL (0.0-1.0); MONOCYTES % (AUTO) 9.1 %; NEUTROPHILS # (AUTO) 6.8 10^3/uL (1.5-6.6); NEUTROPHILS % (AUTO) 78.3 %; PLT - PLATELET COUNT 228 10^3/uL (130-450); RED BLOOD COUNT 4.33 10^6/uL (4.70-6.10); RED CELL DISTRIBUTION WIDTH 13.6 % (12.0-15.0); WHITE BLOOD COUNT 8.7 x10^3/uL (4.8-10.8)
[2019-08-28 14:05] LABS: CREATININE 0.8 mg/dL (0.6-1.2)
[2019-08-28] MEDS ORDERED: SULFAMETH/TRIMETH DS 800/160 MG TABLET PO STA (14:10)
== END 2019-08-28 14:15 | disposition home or self-care (01) ==
LOC: ED 12:07
DX: N30.91 Cystitis, unspecified with hematuria (principal)
CPT/HCPCS: 36415; 51798; 80048; 81001; 85025; 87086; 99283; A9270; 81003

== ENCOUNTER 2019-10-25 12:21 | Outpatient (CLI) | payer MEDICARE, OTHER | END 2019-10-25 23:59 | disposition EMS.NT | LOC: EMS 12:21 | PROVIDERS: ATTEND Surgery | DX: S99.912A Unspecified injury of left ankle, initial encounter (principal); X50.9XXA Other and unspecified overexertion or strenuous movements or postures, initial encounter; Y93.K1 Activity, walking an animal; Y92.838 Other recreation area as the place of occurrence of the external cause ==

== ENCOUNTER 2019-11-30 09:47 | Outpatient (CLI) | payer MEDICARE, OTHER ==
[2019-11-30 10:29] LABS: HB2 TOTAL 12.8 g/dL; HEMOGLOBIN A1C 0.5 g/dL; HEMOGLOBIN A1C % 5.7 % (4.6-6.2)
== END 2019-11-30 09:48 | disposition home or self-care (01) ==
LOC: LAB 09:47
PROVIDERS: ATTEND Internal Medicine
DX: R73.9 Hyperglycemia, unspecified (principal)
CPT/HCPCS: 36415; 83036

== ENCOUNTER 2020-04-11 08:52 | Outpatient (CLI) | payer MEDICARE, OTHER | END 2020-04-11 08:53 | disposition home or self-care (01) | LOC: DI 08:52 | PROVIDERS: ATTEND Internal Medicine | DX: R00.1 Bradycardia, unspecified (principal); I51.7 Cardiomegaly; I34.0 Nonrheumatic mitral (valve) insufficiency; I35.0 Nonrheumatic aortic (valve) stenosis | CPT/HCPCS: 93306 ==

== ENCOUNTER 2020-04-11 10:12 | Outpatient (CLI) | payer MEDICARE, OTHER | END 2020-04-11 10:13 | disposition home or self-care (01) | LOC: RT 10:12 | PROVIDERS: ATTEND Internal Medicine | DX: R55 Syncope and collapse (principal) ==

== ENCOUNTER 2020-04-14 14:18 | Outpatient (CLI) | payer MEDICARE, OTHER ==
[2020-04-14 14:54] LABS: BASOPHILS # (AUTO) 0.1 10^3/uL (0.0-0.1); BASOPHILS % (AUTO) 0.5 %; EOSINOPHILS # (AUTO) 0.5 10^3/uL (0.0-0.7); HGB - HEMOGLOBIN 11.7 g/dL (14.0-18.0); LYMPHOCYTES # (AUTO) 1.7 10^3/uL (1.5-3.5); LYMPHOCYTES % (AUTO) 15.5 %; MEAN CORPUSCULAR HEMOGLOBIN 28.1 pg (27.0-31.0); MEAN CORPUSCULAR HGB CONC 31.9 g/dL (32.0-36.0); MEAN CORPUSCULAR VOLUME 88.2 fL (80.0-94.0); MEAN PLATELET VOLUME 9.7 fL (7.4-11.4); MONOCYTES # (AUTO) 1.2 10^3/uL (0.0-1.0); MONOCYTES % (AUTO) 10.9 %; NEUTROPHILS # (AUTO) 7.2 10^3/uL (1.5-6.6); NEUTROPHILS % (AUTO) 67.7 %; PLT - PLATELET COUNT 185 10^3/uL (130-450); RED BLOOD COUNT 4.16 10^6/uL (4.70-6.10); RED CELL DISTRIBUTION WIDTH 13.8 % (12.0-15.0); WHITE BLOOD COUNT 10.7 x10^3/uL (4.8-10.8)
[2020-04-14 15:20] LABS: ALBUMIN 3.8 g/dL (3.2-5.5); BILIRUBIN,DIRECT 0.2 mg/dL (0.1-0.5); BILIRUBIN,TOTAL 0.9 mg/dL (0.2-1.0); TOTAL PROTEIN 6.7 g/dL (6.7-8.2)
== END 2020-04-14 14:19 | disposition home or self-care (01) ==
LOC: LAB 14:18
PROVIDERS: ATTEND Student in an Organized Health Care Education/Training Program
DX: K83.1 Obstruction of bile duct (principal)
CPT/HCPCS: 36415; 80076; 85025

== ENCOUNTER 2020-08-23 18:20 | Outpatient (CLI) | payer MEDICARE, OTHER | END 2020-08-23 18:21 | disposition critical access hospital (66) | LOC: EMS 18:20 | PROVIDERS: ATTEND Surgery | DX: R53.1 Weakness (principal); R50.9 Fever, unspecified | CPT/HCPCS: A0425; A0429 ==

== ENCOUNTER 2020-08-23 18:50 | Emergency (ER) | payer MEDICARE, OTHER ==
--- NOTE | 2020-08-23 20:16 | ED Physician Documentation ---
History of Present Illness - Stated complaint Stated Complaint: WEAKNESS - Chief complaint Chief Complaint: Fever - History obtained from History obtained from: Patient, EMS - History of Present Illness Timing: Today Pain level max: 0 Pain level now: 0 Improved by: nothing Worsened by: no exacerbating factors - Additonal information Additional information: BIBA, c/o generalized weakness since earlier this evening associated with fever, Tmax 104 (measured by EMS DATA VISUALIZATION DEVELOPER). On my HPI, patient says he has mild generalized weakness but otherwise feels well. He says he has had similar episodes of weakness in the past (without other symptoms) which were thought to be caused by infection related to biliary stents; last [facility] ED visit was in March 2020 with similar presentation and testing was s/o infection related to his biliary stents Review of Systems Constitutional: reports: Fever, Chills. denies: Sweats Throat: denies: Sore throat Cardiac: reports: Reviewed and negative Respiratory: reports: Reviewed and negative GI: reports: Reviewed and negative : denies: Dysuria, Frequency PD PAST MEDICAL HISTORY - Past Medical History Cardiovascular: Atrial fibrillation Respiratory: None Neuro: TIA Endocrine/Autoimmune: None GI: Other : Benign prostate hypertrophy Psych: None Derm: None - Past Surgical History Past Surgical History: Yes General: Cholecystectomy, EGD, Other Ortho: Knee replacement - Present Medications Home Medications: Ambulatory Orders Medication Instructions Recorded Confirmed Tamsulosin [Flomax] 0.4 mg PO QPM 02/05/16 07/23/19 Flecainide [Tambocar] 50 mg PO BID 07/22/19 07/23/19 Atorvastatin [Lipitor] 10 mg PO QPM 07/23/19 07/23/19 Rivaroxaban [Xarelto] 20 mg PO QDDINNER 07/23/19 07/23/19 [id number] CD [Cardizem Cd] 120 mg PO DAILY 07/23/19 07/23/19 Omeprazole 20 mg PO DAILY 08/28/19 08/28/19 Sulfamethoxazole/Trimethoprim 1 each PO BID 7 Days #14 tablet 08/28/19 [Sulfamethoxazole-Tmp Ds Tablet] Cefdinir 300 mg PO BID #20 capsule 03/11/20 Levofloxacin [Levaquin] 500 mg PO DAILY #10 tablet 08/24/20 - Allergies Allergies/Adverse Reactions: Allergies Allergy/AdvReac Type Severity Reaction Status Date / Time Penicillins Allergy Itching Verified 08/23/20 19:06 - Social History Does the pt smoke?: No Smoking Status: Never smoker Does the pt drink ETOH?: Yes Does the pt have substance abuse?: No - Immunizations Immunizations are current?: Yes - POLST Patient has POLST: No PD ED PE NORMAL - Vitals Vital signs reviewed: Yes - General General: Alert and oriented X 3, No acute distress, Well developed/nourished - HEENT HEENT: Moist mucous membranes - Neck Neck: Supple, no meningeal sign - Cardiac Cardiac: No murmur - Respiratory Respiratory: No respiratory distress, Clear bilaterally - Abdomen Abdomen: Soft, Non tender, Non distended - Back Back: No CVA TTP - Derm Derm: Normal color, Warm and dry - Extremities Extremities: No edema - Neuro Neuro: Alert and oriented X 3 PD ED PE EXPANDED - Cardiac Cardiac: Regular Rate, Irregularly irregular Results - Vitals Vitals: Oxygen O2 Source Nasal cannula - Labs Labs: Microbiology 08/23/20 23:50 Urine Culture - Final Urine,Clean Catch Escherichia Coli 08/23/20 21:28 Blood Culture - Preliminary Blood - Right Arm NO GROWTH AFTER 1 DAY 08/23/20 20:38 Blood Culture - Preliminary Blood - Right Arm NO GROWTH AFTER 1 DAY Laboratory Tests 08/23/20 08/23/20 08/23/20 20:38 20:38 20:38 WBC RBC Hgb Hct MCV MCH MCHC RDW Plt Count MPV Neut # (Auto) Lymph # (Auto) [place] # (Auto) Eos # (Auto) Baso # (Auto) Absolute Nucleated RBC Band Neuts % (Manual) Abnorm Lymph % (Manual) Nucleated RBC % Neutrophils # (Manual) Lymphocytes # (Manual) Monocytes # (Manual) Eosinophils # (Manual) Basophils # (Manual) Differential Comment Manual Slide Review Platelet Estimate Platelet Morphology RBC Morph Micro Appear PT 19.7 H INR 1.8 H APTT 30.4 Sodium Potassium Chloride Carbon Dioxide Anion Gap BUN Creatinine Estimated GFR (MDRD) Glucose Lactic Acid 1.0 Calcium Total Bilirubin AST ALT Alkaline Phosphatase Total Protein Albumin Globulin Albumin/Globulin Ratio Lipase Urine Color Urine Clarity Urine pH Ur Specific [place] Urine Protein Urine Glucose (UA) Urine Ketones Urine Occult Blood Urine Nitrite Urine Bilirubin Urine Urobilinogen Ur Leukocyte Esterase Urine RBC Urine WBC Ur Squamous Epith Cells Urine Bacteria Ur Microscopic Review Urine Culture Comments Nasal Adenovirus (PCR) NOT DETECTED Nasal B. parapertussis DNA (PCR) NOT DETECTED Nasal Coronavir 229E PCR NOT DETECTED Nasal Coronavir HKU1 PCR NOT DETECTED Nasal Coronavir NL63 PCR NOT DETECTED Nasal Coronavir OC43 PCR NOT DETECTED Nasal Enterovir/Rhinovir PCR NOT DETECTED Nasal Influenza B PCR NOT DETECTED Nasal Influenza A PCR NOT DETECTED Nasal Parainfluen 1 PCR NOT DETECTED Nasal Parainfluen 2 PCR NOT DETECTED Nasal Parainfluen 3 PCR NOT DETECTED Nasal Parainfluen 4 PCR NOT DETECTED Nasal RSV (PCR) NOT DETECTED Nasal B.pertussis DNA PCR NOT DETECTED Nasal C.pneumoniae (PCR) NOT DETECTED [place] Human Metapneumo PCR NOT DETECTED Nasal M.pneumoniae (PCR) NOT DETECTED Nasal SARS-CoV-2 (PCR) NOT DETECTED 08/23/20 08/23/20 08/23/20 20:38 20:38 23:50 WBC 21.0 H RBC 4.16 L Hgb 11.3 L Hct 35.5 L MCV 85.3 MCH 27.2 MCHC 31.8 L RDW 14.4 Plt Count 207 MPV 9.9 Neut # (Auto) 17.9 H Lymph # (Auto) 1.2 L [place] # (Auto) 1.7 H Eos # (Auto) 0.1 Baso # (Auto) 0.1 Absolute Nucleated RBC 0.00 Band Neuts % (Manual) Not Reportable Abnorm Lymph % (Manual) Not Reportable Nucleated RBC % 0.0 Neutrophils # (Manual) Not Reportable Lymphocytes # (Manual) Not Reportable Monocytes # (Manual) Not Reportable Eosinophils # (Manual) Not Reportable Basophils # (Manual) Not Reportable Differential Comment MANUAL=AUTO DIFF Manual Slide Review Indicated Platelet Estimate NORMAL (130-450,000) Platelet Morphology NORMAL APPEARANCE RBC Morph Micro Appear NORMAL APPEARANCE PT INR APTT Sodium 129 L Potassium 3.7 Chloride 95 L Carbon Dioxide 26 Anion Gap 8.0 BUN 16 Creatinine 1.0 Estimated GFR (MDRD) 71 L Glucose 169 H Lactic Acid Calcium 8.9 Total Bilirubin 0.7 AST 20 ALT 19 Alkaline Phosphatase 75 Total Protein 7.2 Albumin 3.6 Globulin 3.6 Albumin/Globulin Ratio 1.0 Lipase 21 L Urine Color YELLOW Urine Clarity HAZY Urine pH 6.5 Ur Specific [place] <=1.005 Urine Protein 30 H Urine Glucose (UA) NEGATIVE Urine Ketones NEGATIVE Urine Occult Blood SMALL H Urine Nitrite POSITIVE H Urine Bilirubin NEGATIVE Urine Urobilinogen 0.2 (NORMAL) Ur Leukocyte Esterase LARGE H Urine RBC 6-10 H Urine WBC >25 H Ur Squamous Epith Cells RARE Squamous Urine Bacteria Moderate H Ur Microscopic Review INDICATED Urine Culture Comments INDICATED Nasal Adenovirus (PCR) Nasal B. parapertussis DNA (PCR) Nasal Coronavir 229E PCR Nasal Coronavir HKU1 PCR Nasal Coronavir NL63 PCR Nasal Coronavir OC43 PCR Nasal Enterovir/Rhinovir PCR Nasal Influenza B PCR Nasal Influenza A PCR Nasal Parainfluen 1 PCR Nasal Parainfluen 2 PCR Nasal Parainfluen 3 PCR Nasal Parainfluen 4 PCR Nasal RSV (PCR) Nasal B.pertussis DNA PCR Nasal C.pneumoniae (PCR) [place] Human Metapneumo PCR Nasal M.pneumoniae (PCR) Nasal SARS-CoV-2 (PCR) - Rads (name of study) cxr Radiology: Prelim report reviewed, See rad report CT A/P Radiology: Prelim report reviewed, See rad report PD MEDICAL DECISION MAKING - ED course Complexity details: reviewed old records, reviewed results, re-evaluated patient, considered differential, d/w patient ED course: On reevaluation after tests resulted, patient is in NAD and says he feels well and that he no longer feels generalized weakness. Fever resolved after PO tyneol Results d/w patient with CT and UA s/o UTI; he initially indicated no urinary symptoms but on reevaluation, he tells me he has been having urinary frequency and dysuria. significant leukocytosis (WBC 21) but normal lactate, normotensive during ED stay, and no other emergently concerning findings on testing or exam that would indicate inpatient stay/treatment is necessary. Given PO levaquin and rx for same Departure - Departure Disposition: 01 Home, Self Care Clinical Impression: Urinary tract infection Qualifiers: Urinary tract infection type: acute cystitis Hematuria presence: without hematuria Qualified Code(s): N30.00 - Acute cystitis without hematuria Fever Qualifiers: Fever type: unspecified Qualified Code(s): R50.9 - Fever, unspecified Condition: Good Instructions: ED UTI Cystitis Male Follow-Up: OLIVIA GUAMAN MD [Primary Care Provider] - Within 3 Days Prescriptions: Levofloxacin [Levaquin] 500 mg PO DAILY #10 tablet Discharge Date/Time: 08/24/20 02:30
[2020-08-23] MEDS ORDERED: ACETAMINOPHEN 325 MG TABLET PO STA (20:48)
[2020-08-23 20:51] LABS: INR 1.8 (0.8-1.2); PT - PROTHROMBIN TIME 19.7 secs (9.9-12.6)
[2020-08-23 20:57] LABS: BASOPHILS # (AUTO) 0.1 10^3/uL (0.0-0.1); BASOPHILS % (AUTO) 0.3 %; EOSINOPHILS # (AUTO) 0.1 10^3/uL (0.0-0.7); EOSINOPHILS % (AUTO) 0.3 %; HGB - HEMOGLOBIN 11.3 g/dL (14.0-18.0); LYMPHOCYTES # (AUTO) 1.2 10^3/uL (1.5-3.5); LYMPHOCYTES % (AUTO) 5.6 %; MEAN CORPUSCULAR HEMOGLOBIN 27.2 pg (27.0-31.0); MEAN CORPUSCULAR HGB CONC 31.8 g/dL (32.0-36.0); MEAN CORPUSCULAR VOLUME 85.3 fL (80.0-94.0); MEAN PLATELET VOLUME 9.9 fL (7.4-11.4); MONOCYTES # (AUTO) 1.7 10^3/uL (0.0-1.0); NEUTROPHILS # (AUTO) 17.9 10^3/uL (1.5-6.6); NEUTROPHILS % (AUTO) 85.2 %; PLT - PLATELET COUNT 207 10^3/uL (130-450); RED BLOOD COUNT 4.16 10^6/uL (4.70-6.10); RED CELL DISTRIBUTION WIDTH 14.4 % (12.0-15.0)
[2020-08-23 21:00] LABS: PARTIAL THROMBOPLASTIN TIME 30.4 secs (24.9-33.3)
[2020-08-23 21:06] LABS: ALBUMIN 3.6 g/dL (3.2-5.5); BILIRUBIN,TOTAL 0.7 mg/dL (0.2-1.0); CALCIUM 8.9 mg/dL (8.5-10.3); TOTAL PROTEIN 7.2 g/dL (6.7-8.2)
[2020-08-23 22:02] LABS: DIFFERENTIAL COMMENT MANUAL=AUTO DIFF; PLATELET ESTIMATE, MANUAL NORMAL (130-450,000) (NORMAL); PLATELET MORPHOLOGY NORMAL APPEARANCE (NORMAL); RBC MORPHOLOGY (MULTIPLE) NORMAL APPEARANCE (NORMAL)
--- NOTE | 2020-08-23 22:05 | XRAY Report ---
PROCEDURE: Chest 2 View X-Ray INDICATIONS: fever, hypoxic TECHNIQUE: 2 view(s) of the chest. COMPARISON: 07/22/2019. FINDINGS: Surgical changes and devices: None. Lungs and pleura: Diffuse interstitial prominence. No focal consolidation. Lung volumes are diminish ed bilaterally. No pleural effusions or pneumothorax. Mediastinum: Mediastinal contours are stable. Heart size is normal. Bones and chest wall: No suspicious bony abnormalities. Soft tissues appear unremarkable. IMPRESSION: Diffuse interstitial prominence likely related to hypoventilatory changes given low lung volumes. No focal consolidations. Other considerations include an inflammatory versus infectious process given re ported history of fever and hypoxia. Consider dedicated upright PA and lateral views of the chest when patient is able. Reviewed by: Lucius Dumont MD on 08/23/2020 10:04 PM [facility] Approved by: Lucius Dumont MD on 08/23/2020 10:04 PM [facility] Station ID: [id number]
[2020-08-23] MEDS ORDERED: IOVERSOL 320 100 ML VIAL IVP ONE ×2 (22:07→22:29)
[2020-08-23 22:40] LABS: C. PNEUMONIAE- RESP PCR PANEL NOT DETECTED
[2020-08-23 23:54] LABS: BILIRUBIN,URINE NEGATIVE (NEGATIVE); CLARITY,URINE HAZY (CLEAR); GLUCOSE, URINE (UA) NEGATIVE (NEGATIVE); KETONES,URINE (UA) NEGATIVE (NEGATIVE); LEUKOCYTE ESTERASE, URINE LARGE (NEGATIVE); NITRITE,URINE POSITIVE (NEGATIVE); OCCULT BLOOD,URINE SMALL (NEGATIVE); PH,URINE 6.5 PH (5.0-7.5); PROTEIN,URINE 30 mg/dL (NEGATIVE); UROBILINOGEN,URINE 0.2 (NORMAL) E.U./dL (NORMAL)
[2020-08-24] LABS: BACTERIA,URINE Moderate /HPF (None Seen); SQUAMOUS EPITHELIAL CELL,UR RARE Squamous (<= Few)
[2020-08-24] MEDS ORDERED: levoFLOXacin 750 MG/150 ML 750 MG/150 ML BAG IV STA (00:42)
[2020-08-24 01:53] VITALS: BP 140/65
--- NOTE | 2020-08-24 07:39 | CT Report ---
PROCEDURE: Abdomen/Pelvis W INDICATIONS: fever, h/o biliary stents with obstruction CONTRAST: IV CONTRAST: Optiray 320 ml: 100 PO CONTRAST: *NO PO CONTRAST TECHNIQUE: After the administration of contrast, 5 mm thick sections acquired from the diaphragms to the sym physis. 5 mm thick coronal and sagittal reformats were acquired. For radiation dose reduction, the following was used: automated exposure control, adjustment of mA and/or kV according to patient size . COMPARISON: CT abdomen and pelvis with contrast, 03/11/2020 and 07/23/2019. FINDINGS: Image quality: Excellent. ABDOMEN: Lung bases: There is a 1 cm groundglass nodule in the right middle lobe (series 4 image 1/41), not se en on the comparison CT dated 03/11/2020. Bibasilar atelectasis. Heart size is normal. Moderate cor onary artery calcification. Solid organs: Partial hepatectomy. There is a biliary stent. Pneumobilia is present. Spleen is normal in size and enhancement. Gallbladder is surgically absent. Mild pancreatic duct dilation measuring 4 mm. Pancreas enhances normally. No adrenal nodules. 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 Kidneys demonstrate normal size and enhancement, without hydronephrosis. Peritoneum and bowel: There is a large amount of stool in colon. Bowel loops demonstrate normal wall thickness and caliber. No free fluid or air. Nodes and vessels: No retroperitoneal or mesenteric adenopathy by size criteria. Aorta and inferior vena cava are normal in size. Moderate aortic and iliac artery calcification. Miscellaneous: No ventral hernias. PELVIS: Genitourinary: Bladder wall is diffusely thickened. The prostate is markedly enlarged. Miscellaneous: No inguinal hernias or adenopathy. Bones: No suspicious bony lesions. No vertebral body compression fractures. There is a sclerotic f ocus in the right iliac bone, most likely a bone island. Severe degenerative changes in lumbar spine. IMPRESSION: 1. There is diffuse thickening of urinary bladder suggesting cystitis. A differential diagnosis is ch ronic bladder outlet obstruction. 2. Partial hepatectomy. There is a a biliary stent. Pneumobilia is present. Please correlate with ser um bilirubin for biliary obstruction. 3. Mild pancreatic duct dilatation. 4. Markedly enlarged prostate. 5. A 1 cm groundglass nodule in the right middle lobe. Recommend follow-up chest CT in 3 months. No significant discrepancy with the preliminary interpretation. Reviewed by: Faith Puentes MD on 08/24/2020 7:38 AM PST Approved by: Faith Puentes MD on 08/24/2020 7:38 AM PST Station ID: [id number]
== END 2020-08-24 02:30 | disposition home or self-care (01) ==
LOC: EDUNIT# → ED 18:50 → SUPCPDRO 18:50 → ED 08-24 02:30
DX: N30.00 Acute cystitis without hematuria (principal); R50.9 Fever, unspecified; I48.91 Unspecified atrial fibrillation; Z79.01 Long term (current) use of anticoagulants; Z20.822 Contact with and (suspected) exposure to COVID-19
CPT/HCPCS: 36415; 71046; 74177; 80053; 81001; 83605; 83690; 85025; 85610; 85730; 87040; 87086; 87181; 87631; 96365; 96366; 99284; A9270; Q9967; 0202U; 81003

== ENCOUNTER 2020-08-28 11:13 | Outpatient (CLI) | payer MEDICARE, OTHER ==
--- NOTE | 2020-08-28 14:17 | XRAY Report ---
PROCEDURE: Abdomen 1 View X-Ray INDICATIONS: biliary tract disorder, check position of bile duct stents TECHNIQUE: 2 views of the abdomen were acquired. COMPARISON: CT of abdomen and pelvis dated 08/23/2020 FINDINGS: Surgical changes and devices: A biliary stent is noted in right upper quadrant. Adjacent surgical cli ps are also noted small ringlike density is seen projecting in left side of abdomen which was also se en on previous CT study. Bowel: No pneumoperitoneum. The bowel gas pattern is nonobstructive. Fecal stasis in the colon is seen. Soft tissues: No masses; visualized solid organ contours appear normal in size. No suspicious abdom inal calcifications. Bones: No suspicious bony abnormalities. IMPRESSION: Right-sided very stent is seen projecting in its expected location. No gross free air. M ild constipation. Reviewed by: Michael Pryor MD on 08/28/2020 2:15 PM PST Approved by: Michael Pryor MD on 08/28/2020 2:15 PM PST Station ID: [id number]
== END 2020-08-28 11:14 | disposition home or self-care (01) ==
LOC: DI 11:13
PROVIDERS: ATTEND Student in an Organized Health Care Education/Training Program
DX: K59.00 Constipation, unspecified (principal); Z96.89 Presence of other specified functional implants

== ENCOUNTER 2020-10-26 11:13 | Outpatient (CLI) | payer MEDICARE, OTHER | END 2020-10-26 11:14 | disposition home or self-care (01) | LOC: RT 11:13 | PROVIDERS: ATTEND Internal Medicine | DX: I48.0 Paroxysmal atrial fibrillation (principal) | CPT/HCPCS: 93005 ==

== ENCOUNTER 2021-02-25 17:06 | Outpatient (CLI) | payer MEDICARE, OTHER | END 2021-02-25 17:07 | disposition EMS.NT | LOC: EMS 17:06 | DX: S80.212A Abrasion, left knee, initial encounter (principal); W01.0XXA Fall on same level from slipping, tripping and stumbling without subsequent striking against object, initial encounter; Y93.01 Activity, walking, marching and hiking; Y92.821 Forest as the place of occurrence of the external cause ==

== ENCOUNTER 2021-04-30 18:53 | Outpatient (CLI) | payer MEDICARE, OTHER | END 2021-04-30 18:54 | disposition EMS.NT | LOC: EMS 18:53 | DX: Z03.89 Encounter for observation for other suspected diseases and conditions ruled out (principal) ==

== ENCOUNTER 2021-05-01 14:32 | Outpatient (CLI) | payer MEDICARE, OTHER | END 2021-05-01 14:33 | disposition critical access hospital (66) | LOC: EMS 14:32 | DX: R26.81 Unsteadiness on feet (principal); R42 Dizziness and giddiness; R00.1 Bradycardia, unspecified; I48.91 Unspecified atrial fibrillation; Z79.01 Long term (current) use of anticoagulants | CPT/HCPCS: A0425; A0429 ==

== ENCOUNTER 2021-05-01 15:03 | Inpatient (IN) | payer MEDICARE, OTHER ==
--- NOTE | 2021-05-01 15:25 | ED Physician Documentation ---
History of Present Illness - Stated complaint Stated Complaint: CONFUSION - Chief complaint Chief Complaint: General - History obtained from History obtained from: Patient - Additonal information Additional information: 85-year-old gentleman on Xarelto tripped and fell yesterday while walking his dog. It was a simple mechanical fall. He hit in the area of the right shoulder but that does not hurt. Today feels confused and unsteady on his feet. No headache. Denies significant drug or alcohol use. Review of Systems Constitutional: denies: Fever, Chills Ears: reports: Reviewed and negative Nose: reports: Reviewed and negative Throat: reports: Reviewed and negative Cardiac: reports: Reviewed and negative Respiratory: reports: Reviewed and negative PD PAST MEDICAL HISTORY - Past Medical History Cardiovascular: Atrial fibrillation Respiratory: None Neuro: TIA Endocrine/Autoimmune: None GI: Other : Benign prostate hypertrophy Psych: None Derm: None - Past Surgical History Past Surgical History: Yes General: Cholecystectomy, EGD, Other Ortho: Knee replacement - Present Medications Home Medications: Ambulatory Orders Medication Instructions Recorded Confirmed Tamsulosin [Flomax] 0.4 mg PO QPM 02/05/16 07/23/19 Flecainide [Tambocar] 50 mg PO BID 07/22/19 07/23/19 Atorvastatin [Lipitor] 10 mg PO QPM 07/23/19 07/23/19 Rivaroxaban [Xarelto] 20 mg PO QDDINNER 07/23/19 07/23/19 [id number] CD [Cardizem Cd] 120 mg PO DAILY 07/23/19 07/23/19 Omeprazole 20 mg PO DAILY 08/28/19 08/28/19 Sulfamethoxazole/Trimethoprim 1 each PO BID 7 Days #14 tablet 08/28/19 [Sulfamethoxazole-Tmp Ds Tablet] Cefdinir 300 mg PO BID #20 capsule 03/11/20 levoFLOXacin [Levaquin] 500 mg PO DAILY #10 tablet 08/24/20 - Allergies Allergies/Adverse Reactions: Allergies Allergy/AdvReac Type Severity Reaction Status Date / Time Penicillins Allergy Itching Verified 05/01/21 15:11 - Social History Does the pt smoke?: No Smoking Status: Never smoker Does the pt drink ETOH?: Yes Does the pt have substance abuse?: No - Immunizations Immunizations are current?: Yes - POLST Patient has POLST: No PD ED PE NORMAL - Vitals Vital signs reviewed: Yes - General General: No acute distress, Other (Alert and oriented to person and place and events but not date.) - HEENT HEENT: PERRL, EOMI - Neck Neck: Supple, no meningeal sign, No bony TTP - Cardiac Cardiac: RRR, No murmur - Respiratory Respiratory: No respiratory distress, Clear bilaterally - Abdomen Abdomen: Soft, Non tender - Back Back: No CVA TTP, No spinal TTP - Derm Derm: Normal color, Warm and dry - Extremities Extremities: No deformity, No tenderness to palpate, Normal ROM s pain - Neuro Neuro: No motor deficit, No sensory deficit, Normal speech, Other (He has truncal ataxia when he sits and has difficulty with left-sided lrka-qc-[id number] testing. Rybsnl-zh-knng testing seems okay.) Eye Opening: Spontaneous Motor: Obeys Commands Verbal: Confused (mild) GCS Score: 14 Results - Vitals Vitals: Vital Signs - 24 hr 05/01/21 05/01/21 15:11 16:30 Temperature 35.8 C L 36.7 C Heart Rate 60 99 Respiratory 20 22 Rate Blood Pressure 176/69 H 183/97 H O2 Saturation 99 96 Oxygen O2 Source Room air - Labs Labs: Laboratory Tests 05/01/21 05/01/21 05/01/21 15:33 15:33 15:33 WBC 7.5 RBC 4.56 L Hgb 12.3 L Hct 39.8 L MCV 87.3 MCH 27.0 MCHC 30.9 L RDW 14.8 Plt Count 194 MPV 9.7 Neut # (Auto) 4.3 Lymph # (Auto) 2.0 [place] # (Auto) 0.7 Eos # (Auto) 0.5 Baso # (Auto) 0.1 Absolute Nucleated RBC 0.00 Nucleated RBC % 0.0 PT 32.8 H INR 3.0 H Sodium 136 Potassium 4.1 Chloride 99 L Carbon Dioxide 28 Anion Gap 9.0 BUN 21 H Creatinine 0.9 Estimated GFR (MDRD) 81 L Glucose 114 H Calcium 9.6 Nasal Adenovirus (PCR) Nasal B. parapertussis DNA (PCR) Nasal Coronavir 229E PCR Nasal Coronavir HKU1 PCR Nasal Coronavir NL63 PCR Nasal Coronavir OC43 PCR Nasal Enterovir/Rhinovir PCR Nasal Influenza B PCR Nasal Influenza A PCR Nasal Parainfluen 1 PCR Nasal Parainfluen 2 PCR Nasal Parainfluen 3 PCR Nasal Parainfluen 4 PCR Nasal RSV (PCR) Nasal B.pertussis DNA PCR Nasal C.pneumoniae (PCR) [place] Human Metapneumo PCR Nasal M.pneumoniae (PCR) Nasal SARS-CoV-2 (PCR) 05/01/21 16:22 WBC RBC Hgb Hct MCV MCH MCHC RDW Plt Count MPV Neut # (Auto) Lymph # (Auto) [place] # (Auto) Eos # (Auto) Baso # (Auto) Absolute Nucleated RBC Nucleated RBC % PT INR Sodium Potassium Chloride Carbon Dioxide Anion Gap BUN Creatinine Estimated GFR (MDRD) Glucose Calcium Nasal Adenovirus (PCR) NOT DETECTED Nasal B. parapertussis DNA (PCR) NOT DETECTED Nasal Coronavir 229E PCR NOT DETECTED Nasal Coronavir HKU1 PCR NOT DETECTED Nasal Coronavir NL63 PCR NOT DETECTED Nasal Coronavir OC43 PCR NOT DETECTED Nasal Enterovir/Rhinovir PCR NOT DETECTED Nasal Influenza B PCR NOT DETECTED Nasal Influenza A PCR NOT DETECTED Nasal Parainfluen 1 PCR NOT DETECTED Nasal Parainfluen 2 PCR NOT DETECTED Nasal Parainfluen 3 PCR NOT DETECTED Nasal Parainfluen 4 PCR NOT DETECTED Nasal RSV (PCR) NOT DETECTED Nasal B.pertussis DNA PCR NOT DETECTED Nasal C.pneumoniae (PCR) NOT DETECTED [place]zel Human Metapneumo PCR NOT DETECTED Nasal M.pneumoniae (PCR) NOT DETECTED Nasal SARS-CoV-2 (PCR) NOT DETECTED PD MEDICAL DECISION MAKING - ED course ED course: 85-year-old gentleman on a DOAC presents for confusion and unsteadiness. He had a minor head trauma yesterday but CT of the head was negative. On repeat examination I tried to get him up to walk him, he was profoundly ataxic and could not walk unassisted. On further examination he had abnormal nzox-[id number]-pwac testing in the left leg and I suspect he may have had a posterior CVA causing this. He is anticoagulated therapeutically and has been compliant with his regimen so TPA is not considered, plus the time of onset is not completely clear. Call to the hospitalist for observation at 4:[address] angiography prior to admit. This was done. Concern for the left vertebral artery. This was discussed with telestroke neurology, Dr. Tobias who viewed the images and did not feel he needed transfer for LVO retrieval, but recommends admission for MRI etc. Departure - Departure Disposition: 66 [facility] DC/Xfer Clinical Impression: Head contusion, Paroxysmal atrial fibrillation, Ataxia, Adequate anticoagulation on anticoagulant therapy Condition: Fair Discharge Date/Time: 05/01/21 19:23
[2021-05-01 15:38] LABS: BASOPHILS # (AUTO) 0.1 10^3/uL (0.0-0.1); BASOPHILS % (AUTO) 0.8 %; EOSINOPHILS # (AUTO) 0.5 10^3/uL (0.0-0.7); EOSINOPHILS % (AUTO) 6.5 %; HCT - HEMATOCRIT 39.8 % (42.0-52.0); HGB - HEMOGLOBIN 12.3 g/dL (14.0-18.0); LYMPHOCYTES % (AUTO) 26.2 %; MEAN CORPUSCULAR HGB CONC 30.9 g/dL (32.0-36.0); MEAN CORPUSCULAR VOLUME 87.3 fL (80.0-94.0); MEAN PLATELET VOLUME 9.7 fL (7.4-11.4); MONOCYTES # (AUTO) 0.7 10^3/uL (0.0-1.0); MONOCYTES % (AUTO) 9.4 %; NEUTROPHILS # (AUTO) 4.3 10^3/uL (1.5-6.6); NEUTROPHILS % (AUTO) 56.8 %; PLT - PLATELET COUNT 194 10^3/uL (130-450); RED BLOOD COUNT 4.56 10^6/uL (4.70-6.10); RED CELL DISTRIBUTION WIDTH 14.8 % (12.0-15.0); WHITE BLOOD COUNT 7.5 x10^3/uL (4.8-10.8)
[2021-05-01 15:44] LABS: PT - PROTHROMBIN TIME 32.8 secs (9.9-12.6)
[2021-05-01 15:49] LABS: CALCIUM 9.6 mg/dL (8.5-10.3); CREATININE 0.9 mg/dL (0.6-1.2); POTASSIUM 4.1 mmol/L (3.5-5.0)
--- NOTE | 2021-05-01 16:00 | CT Report ---
PROCEDURE: CT brain without contrast INDICATIONS: Trauma, pain TECHNIQUE: Noncontrast 4.5 mm thick angled axial sections acquired from the foramen magnum to the vertex. For r adiation dose reduction, the following was used: automated exposure control, adjustment of mA and/or kV according to patient size. COMPARISON: None. FINDINGS: Image quality: Excellent. CSF spaces: Basal cisterns are patent. No extra-axial fluid collections. Ventricles are normal in size and shape. Brain: No midline shift. No intracranial masses or hemorrhage. Nunez-white matter interface is norm al. Moderate atrophy and multifocal white matter chronic ischemic change is stable from the prior ex am. 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 Skull and face: Calvarium and visualized facial bones are intact, without suspicious lesions. Sinuses: Left maxillary sinus mucosal thickening noted. Remainder the paranasal sinuses are clear. IMPRESSION: Moderate atrophy and white matter chronic ischemic change without acute hemorrhage or mass effect is Mild left maxillary mucosal sinus disease Reviewed by: Rafat Ren MD on 05/01/2021 2:59 PM [facility] Approved by: Rafat Ren MD on 05/01/2021 2:59 PM [facility] Station ID: [id number]
[2021-05-01] MEDS ORDERED: IOVERSOL 320 100 ML VIAL IVP ONE (16:29)
--- NOTE | 2021-05-01 17:30 | CT Report ---
PROCEDURE: CT angiogram brain, with contrast INDICATIONS: CVA sx CONTRAST: IV CONTRAST: Optiray 320 ml: 80 PO CONTRAST: *NO PO CONTRAST TECHNIQUE: After the administration of intravenous contrast, 1 mm thick sections acquired through th e [place] of [place]. Postcontrast 4.5 mm thick sections then re-acquired from the foramen magnum to t he vertex. For radiation dose reduction, the following was used: automated exposure control, adjust ment of mA and/or kV according to patient size. COMPARISON: CT brain same day FINDINGS: Image quality: Excellent. Anterior circulation: Intracranial internal carotid arteries are normal in size and flow. Vascular calcification noted in the cavernous portions of both ICA. No significant stenosis. The flow within t he paired anterior cerebral arteries is normal and symmetric. The flow within the middle cerebral ar teries is normal and symmetric. The anterior communicating artery is seen. No aneurysms are seen. Posterior circulation: The left vertebral artery is diminutive, and the intradural portion of the lef t vertebral artery occludes just proximal to the basilar artery. Right vertebral artery is widely pat ent. Normal basilar artery. Hypoplasia/aplasia of the left P1 VERIFICATION ENGINEER noted. The P2 segment is supplied b y a widely patent posterior communicating artery. Remainder of the distal vasculature unremarkable. T here is a moderate right P2 posterior cerebral artery stenosis in the perimesencephalic cistern witho ut occlusion. No aneurysm. IMPRESSION: 1. Right vertebral artery dominance. Distal diminutive intradural left vertebral artery occludes just proximal to the basilar artery. Right vertebral artery is widely patent. 2. Moderate focal stenosis right P2 VERIFICATION ENGINEER noted. 3. No focal aneurysm or arterial venous malformation. Reviewed by: Rafat Ren MD on 05/01/2021 4:29 PM [facility] Approved by: Rafat Ren MD on 05/01/2021 4:29 PM [facility] Station ID: [id number]
[2021-05-01 17:31] LABS: B. PARAPERTUSSIS- RESP PCR PAN NOT DETECTED; B. PERTUSSIS- RESP PCR PANEL NOT DETECTED; C. PNEUMONIAE- RESP PCR PANEL NOT DETECTED; CORONAVIRUS 229E-RESP PCR NOT DETECTED; CORONAVIRUS HKU1-RESP PCR NOT DETECTED; CORONAVIRUS NL63-RESP PCR NOT DETECTED; CORONAVIRUS OC43-RESP PCR NOT DETECTED; HUMAN METAPNEUMOVIRUS NOT DETECTED; INFLUENZA A- RESP PCR PANEL NOT DETECTED; INFLUENZA B - RESP PCR PANEL NOT DETECTED; M. PNEUMONIAE- RESP PCR PANEL NOT DETECTED; PARAINFLUENZA VIRUS 1 NOT DETECTED; PARAINFLUENZA VIRUS 2 NOT DETECTED; PARAINFLUENZA VIRUS 3 NOT DETECTED; PARAINFLUENZA VIRUS 4 NOT DETECTED; RHINOVIRUS/ENTEROVIRUS NOT DETECTED; RSV- RESP PCR PANEL NOT DETECTED; SARS-CoV-2 -RESP PCR PANEL NOT DETECTED
--- NOTE | 2021-05-01 17:36 | CT Report ---
PROCEDURE: CT angiogram neck with contrast INDICATIONS: Neurologic deficit CONTRAST: IV CONTRAST: Optiray 320 ml: 80 PO CONTRAST: *NO PO CONTRAST TECHNIQUE: After the administration of intravenous contrast, 1.5 mm axial sections acquired from the aortic arch to the [place]. Coronal maximum intensity projection (MIP) were then performed . For radiation dose reduction, the following was used: automated exposure control, adjustment of m A and/or kV according to patient size. COMPARISON: None. FINDINGS: Image quality: Excellent. Carotid system: The great vessels demonstrate a conventional anatomy as they arise from the aortic a rch. The origins of the common carotid arteries appear patent. The common carotid arteries demonstr ate normal calibers and courses. Calcified and noncalcified described plaque results in 40% stenosis on the right and no stenosis on t he left utilizing NASCET criteria. Focal moderate stenosis at the origin of the left external carotid artery noted as well. Posterior Circulation: The origins of the vertebral arteries appear patent. The more superior porti ons of the vertebral arteries demonstrate normal course and caliber. Soft tissues: Visualized neck soft tissues demonstrate no suspicious abnormalities. The thyroid is normal in size and there are no incidental findings. Bones: Multilevel degenerative disc disease and arthropathy cervical spine results in moderate centra l stenosis at C3-4, C5-6 and C6-7. IMPRESSION: 1. Atherosclerotic plaque results in 40% stenosis in the proximal right ICA. No occlusion or aneurysm . 2. Multilevel degenerative disc disease and arthropathy results in moderate central stenosis at C3-4, C5-6 and C6-7. The estimate of stenosis included in the report of the imaging study was calculated using the NASCET method Reviewed by: Rafat Ren MD on 05/01/2021 4:35 PM [facility] Approved by: Rafat Ren MD on 05/01/2021 4:35 PM [facility] Station ID: [id number]
[2021-05-01] MEDS ORDERED: ACETAMINOPHEN 325 MG TABLET PO PRN (18:11)
[2021-05-01] MEDS ORDERED: ONDANSETRON 4 MG/2 ML VIAL IVP PRN (18:11)
[2021-05-01] MEDS ORDERED: SODIUM CHLORIDE FLUSH 0.9% 10 ML SYRINGE IVP PRN (18:11)
[2021-05-01] MEDS ORDERED: ONDANSETRON ODT 4 MG TABLET TL PRN (18:11)
[2021-05-01] MEDS ORDERED: ASPIRIN 325 MG TABLET PO STA (18:16)
[2021-05-01] MEDS: ATORVASTATIN 40 MG TABLET PO SCH (20:33)
[2021-05-01] MEDS: IOVERSOL 320 100 ML VIAL IVP ONE (20:42)
--- NOTE | 2021-05-01 21:32 | HISTORY & PHYSICAL EXAMINATION ---
Chief Complaint - Chief Complaint Chief Complaint: fall with dizziness and confusion History of Present Illness - Admitted From Admitted From:: home - History Obtained From Records Reviewed: [facility] History obtained from: Dr. Yo Exam Limitations: none - History of Present Illness HPI Comment/Other: 85-year-old white male who has chronic atrial fibrillation and is on Xarelto. He is without any major medical illnesses. Was walking his dog yesterday when he fell. Landed on his right side and hit his head. He denies any antecedent loss of consciousness, dizziness, chest pain, palpitations. He is compliant with his medications. Has not been ill. He is very clear that this was a mechanical fall because he tripped. Yet, in spite of denying antecedent dizziness, he admits that he has been falling more than he would like. He cannot quite put his finger on it. He thinks somewhere between last spring and summer something happened. He is more unsteady on his feet. He has fallen a few times. All of it because his feet do not move any trips. He has not been using a cane or a walker. He is not quite clear when it all started. He does not remember hitting his head before this. Today he came in because he was more unsteady Than he would like. Even though he had fallen multiple times this last year alone, he felt that somehow he felt worse today than he usually does after a fall. [place] like he was getting confused. No recurrent falls Between yesterday and today. He was seen by the emergency room provider and initial vitals showed a temperature of 35.8, heart rate 60, blood pressure 176/69, respirations 20 and is 99% on room air. On physical examination there were findings of cerebellar ataxia. He was not able to go home because of that. CT of the head was negative. The hospitalist latisha schmidt was contacted for admission and we asked for CT angiogram which showed possible occlusion of the left vertebral artery. Telestroke neurology was then consulted, Dr. Tobias, who stated that he did not need to be transferred for LVO retrieval. He does recommend admission for MRI, rehab, and continued evaluation. History - Past Medical History Cardiovascular: reports: Atrial fibrillation Respiratory: reports: Other (Lung nodule seen on CT in 2018. No follow-up. Repeat lung nodule seen March 2020) Neuro: reports: TIA, Other (Recurrent falls) Endocrine/Autoimmune: reports: None GI: reports: Cholelithiasis (Anita in 30s. Recurrent biliary obstruction. S/p stents and hepatectomy. Admit July 2019 for bacteremia.), Other (b/l inguinal hernias, ventral hernia (recurrent)) : reports: Benign prostate hypertrophy (w thick bladder wall and occ urine retention) Psych: reports: None Derm: reports: None MRSA Hx?: No - Past Surgical History General: reports: Cholecystectomy, EGD, Other (multiple biliary stents, ventral hernia repair w mesh (lysis of adhesions) 12/10) Ortho: reports: Knee replacement - Family & Social History Family History Comment/Other: He reports his father from sepsis In his 70s. His mother from a myocardial infarction In her 70s. 3 siblings. 1 brother in [place], 1 sister in [place]. He thinks they are healthy just old. 1 brother, living in [place], of unknown causes. 2 children. Both are healthy, and [place] Living arrangement: At home Living Situation: Alone Social History Notes: He went to [place] the [place]. [place] His 2 children live near him. He has been for many years. He cannot remember how many. 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 He states he never smoked. He rarely drinks. Has no history of recreational substance abuse.He lives alone at home with his dog. - Substance History Use: Uses substance without health or social issues: NONE Abuse: Recurrent use of substance despite neg consequences: NONE Dependence: Experiences withdrawal or developed tolerances: NONE - POLST Patient has POLST: No POLST Status: Full Code Meds/Allgy - Home Medications Home Medications: Ambulatory Orders Medication Instructions Recorded Confirmed Tamsulosin [Flomax] 0.4 mg PO QPM 02/05/16 07/23/19 Flecainide [Tambocar] 50 mg PO BID 07/22/19 07/23/19 Atorvastatin [Lipitor] 10 mg PO QPM 07/23/19 07/23/19 Rivaroxaban [Xarelto] 20 mg PO QDDINNER 07/23/19 07/23/19 diltiaZEM CD [Cardizem Cd] 120 mg PO DAILY 07/23/19 07/23/19 Omeprazole 20 mg PO DAILY 08/28/19 08/28/19 Sulfamethoxazole/Trimethoprim 1 each PO BID 7 Days #14 tablet 08/28/19 [Sulfamethoxazole-Tmp Ds Tablet] Cefdinir 300 mg PO BID #20 capsule 03/11/20 levoFLOXacin [Levaquin] 500 mg PO DAILY #10 tablet 08/24/20 - Allergies Allergies/Adverse Reactions: Allergies Allergy/AdvReac Type Severity Reaction Status Date / Time Penicillins Allergy Itching Verified 05/01/21 15:11 Review of Systems - Constitutional Constitutional: denies: Fatigue, Fever, Chills, Malaise, Weakness, Poor appetite, Diaphoresis, Night sweats - Eyes Eyes: reports: Vision loss. denies: Pain, Irritation, Amaurosis, Blurred vision, Dipolpia - Ears, Nose & Throat Ears, Nose & Throat: reports: Hearing loss, Vertigo, Hoarseness. denies: Ear pain, Hearing aids, Tinnitus, Nasal pain, Nasal discharge, Nasal congestion, Postnasal drainage, Dentures, Sore throat - Cardiovascular Cariovascular: denies: Irregular heart rate, Palpitations, Chest pain, Edema, Syncope, Exertional dyspnea, Decr. exercise tolerance - Respiratory Respiratory: denies: Cough, Sputum production, Wheezing, Snoring, SOB at rest, SOB with exertion - Gastrointestinal Gastrointestinal: reports: Reflux/heartburn. denies: Abdominal pain, Abdominal distention, Constipation, Diarrhea, Change in bowel habits, Rectal bleeding, Vomiting, Bloating, Poor appetite - Genitourinary Genitourinary: reports: Nocturia (rarely), Other (in spite of BPh and large prostate on CT, denies urgency, frequency, incontinence.). denies: Dysuria, Frequency, Urgency, Incontinence, Flank pain - Musculoskeletal Musculoskeletal: denies: Muscle pain, Back pain, Muscle aches, Joint pain - Integumentary Integumentary: denies: Pruritis, Lesions - Neurological Neurological: reports: Memory problems (As this is the first. But in speaking to him he can get very vague about his history and cannot remember people, dates or times and reluctantly admits that memory may be a problem but he cannot say how long its been going on.), Abnormal gait (Multiple falls in the last year that he can remember. He cannot remember when it all started. He cannot remember to back Agus or last year.) - Psychiatric Psychiatric: denies: Depression, Anxiety, Suicidal, Delusions, Hallucinations - Endocrine Endocrine: denies: Polyuria, Polydypsia, Polyphagia - Hematologic/Lymphatic Hematologic/Lymphatic: denies: Anemia, Bruising, Petechiae Prior Level of Functionality: He lives alone in his own home. Walks his dog every day. Although he acknowledges the falls due to imbalance, he has refused to get a cane or a walking stick but he cannot say why. He acknowledges it would probably be a good idea but cannot explain why he does not want a get one. He still dresses himself, feeds himself. Drives occasionally. Pays his own bills.Children live nearby and help him Exam - Vital Signs Reviewed Vital Signs: Yes Vital Signs: Vital Signs x48h Temp Pulse Pulse Resp BP BP Pulse Ox 05/01/21 21:00 36.5 C 45 L 20 149/58 H 97 05/01/21 16:30 36.7 C 99 22 183/97 H 96 05/01/21 15:11 35.8 C L 60 20 176/69 H 99 - Physical Exam General Appearance: positive: No acute distress, Alert, Other (Flat affect, monotonic low hoarse voice) Eyes Bilateral: positive: PERRL, EOMI ENT: positive: No signs of dehydration Neck: positive: No JVD. negative: Stiff neck Respiratory: positive: No respiratory distress. negative: Wheezes, Rales, Rhonchi Cardiovascular: positive: Regular rate & rhythm, Systolic murmur. negative: Gallop/S4, Friction rub Peripheral Pulses: positive: 1+ Abdomen: positive: Non-tender, No organomegaly, Nml bowel sounds, No distention, Other (Large ventral hernia in the upper abdomen, easily reducible with previous surgical site scars from previous repaired ventral hernia and mesh) Skin: positive: Warm, Dry Extremities: positive: Full ROM, No pedal edema Neurologic/Psychiatric: positive: Oriented x3, CN's nml (2-12). negative: Motor nml (Left [id number] cannot be done. No past pointing but almost has a tremor at the end of testing. Flat affect and and had tonic facies. No cogwheel rigidity.) Conclusion/Plan - Problem List (1) Ataxia Conclusion/Plan: his falls could be due to his vertebral artery occlusion or PICA distribution but he also has subtle findings of masked fascies and ataxia for months according to his history. Could he have Parkinsonism. Plan: obv stay MRI of head Echo PT Evrudi recommend outpatient eval from neurology for movement disorder A1c lipid panel (2) Head contusion Conclusion/Plan: fall in a patient on a DOAC. On Obv status. will re examine in am for signs of deterioration and will need repeat study but is getting MRI anyway. Qualifiers: Encounter type: initial encounter (3) Adequate anticoagulation on anticoagulant therapy Conclusion/Plan: for atrial fib. CT does not show signs of embolic disease. I have asked him, even if all of this workup doesn't show a problem, to start using a cane or walking sticks when he walks his dogs (4) BPH (benign prostatic hyperplasia) Conclusion/Plan: on flomax, will resume while here. He denies current symptoms even though CT in past confirms bladder wall thickening and prev admit for bacteremia/sepsis due to UTI/retention. Qualifiers: Lower urinary tract symptom presence: symptoms present (5) Fall from slip, trip, or stumble Conclusion/Plan: due to ataxia. again, PT eval and tx, Neurology outpatient consult Qualifiers: Encounter type: initial encounter Qualified Code(s): W01.0XXA - Fall on sa me level from slipping, tripping and stumbling without subsequent striking against object, initial encounter (6) Right middle lobe pulmonary nodule Conclusion/Plan: seen on previous CT. Will repeat CT this admission. (7) Memory loss or impairment Conclusion/Plan: present on exam at this moment but I suspect a chronicity he is not aware of . Plan on discussing with his POA in the am. Have Social work reach out to family since he lives alone. His kids live nearby and he states they are part of his life. they may already be aware and have plans. (8) Chronic atrial fibrillation Conclusion/Plan: he is rate controlled and on xarelto. I would ask that the Neurology consult weight in on whether this yemi man with multiple falls may be at more risk from subdural than embolic stroke. - Lab Results Lab results reviewed: Yes Fish Bones: 05/01/21 15:33 05/01/21 15:33 - Diagnostic Imaging Results Diagnostic Imaging Results: positive: Final report reviewed Diagnostic Imaging Results Comments: Head CT with moderate atrophy and white matter chronic ischemic changes without acute hemorrhage or mass-effect. Mild left maxillary mucosal sinus disease. Head CT angiogram with right vertebral artery dominance. Diminutive intradural left vertebral artery occludes just proximal to the basilar artery. Right vertebral artery is widely patent. 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 No focal aneurysm or arteriovenous malformation. Neck CT angiogram with atherosclerotic plaque resulting in 40% stenosis in the proximal right ICA. No occlusion or aneurysm. Multilevel degenerative disc disease and arthropathy results in moderate central stenosis at C3-4, C5-6, and C6-7. - EKG Results EKG Interpreted Independently: No EKG Comparison: Unchanged from prior EKG, No prior EKG EKG Findings: Sinus rhythm with first-degree AV block. Core Measures - Anticipated LOS I expect patient to be DC'd or transferred within 96 hours.: Yes - DVT/VTE - Prophylaxis VTE/DVT Device ordered at admit?: Yes
--- NOTE | 2021-05-02 02:23 | ADVANCE CARE PLANNING NOTE ---
Advance Care Planning - Planning Encounter Date: 05/01/21 Time: 21:00 Purpose: Establish CODE STATUS and preliminary goals of care Parties in Attendance: Hospitalist and patient Decisional Capacity of the Patient: Oriented to person place and time. Memory gaps evident during discussion. States that he still pays his own bills and is responsible for his own decisions and is not ready to delegate power of assistant attorney general to his KO, his son - Diagnosis for Encounter (5) Fall from slip, trip, or stumble Qualifiers: Qualified Code(s): W01.0XXA - Fall on same level from slipping, tripping and stumbling without subsequent striking against object, initial encounter (7) Memory loss or impairment Summary: During examination, the patient was unable to recall enough events in his life with vague explanations. I asked him if he was experiencing memory loss and he felt that he was but that he was still able to live independently at home - Encounter Subjective/Patient's Story: He lives in his own home. Very happy with his dog that he takes for a walk every day. 2 children live nearby. He is from his and thinks he has been from her for 15 years but is not sure. 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 His main health problem is that of recurrent biliary stones with biliary colic even after his gallbladder have been taken out in his 30s. He has had multiple stents placed. Multiple ERCPs. His next medical problem is that of chronic atrial fibrillation for which he takes rate lowering drugs and Xarelto. He sees his children on a regular basis. And sees them or speaks to them multiple times a week. He tells me that he is able to take care of his own household, do laundry, cook, clean, pay bills. He does not need any help at home. He feels that the quality of his life is very good. He has never thought about CODE STATUS. In a vague way he has thought about aging and what he will need if he has to have somebody take care of him. He would like to be a full code. However, if he becomes bedbound, or completely dependent on anyone to take care of him for bathing, feeding, cleaning, etc. he would like to be DO NOT RESUSCITATE. He also states that he is financially independent enough that he will not go to a retirement facility. His home is expansive enough that he can have live- in or full-time [id number] care Objective/Medical Story: 85-year-old white male who has chronic atrial fibrillation and is on Xarelto. He is without any major medical illnesses. Was walking his dog yesterday when he fell. Landed on his right side and hit his head. He denies any antecedent loss of consciousness, dizziness, chest pain, palpitations. He is compliant with his medications. Has not been ill. He is very clear that this was a mechanical fall because he tripped. Yet, in spite of denying antecedent dizziness, he admits that he has been falling more than he would like. He cannot quite put his finger on it. He thinks somewhere between last spring and summer something happened. He is more unsteady on his feet. He has fallen a few times. All of it because his feet do not move any trips. He has not been using a cane or a walker. He is not quite clear when it all started. He does not remember hitting his head before this. Today he came in because he was more unsteady Than he would like. Even though he had fallen multiple times this last year alone, he felt that somehow he felt worse today than he usually does after a fall. [place] like he was getting confused. No recurrent falls Between yesterday and today. He was seen by the emergency room provider and initial vitals showed a temperature of 35.8, heart rate 60, blood pressure 176/69, respirations 20 and is 99% on room air. On physical examination there were findings of cerebellar ataxia. He was not able to go home because of that. CT of the head was negative. 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 Telestroke neurology was then consulted, Dr. Tobias, who stated that he did not need to be transferred for LVO retrieval. He does recommend admission for MRI, rehab, and continued evaluation. - Past Medical History Cardiovascular: reports: Atrial fibrillation Respiratory: reports: Other (Lung nodule seen on CT in 2018. No follow-up. Repeat lung nodule seen March 2020) Neuro: reports: TIA, Other (Recurrent falls) Endocrine/Autoimmune: reports: None GI: reports: Cholelithiasis (Anita in 30s. Recurrent biliary obstruction. S/p stents and hepatectomy. Admit July 2019 for bacteremia.), Other (b/l inguinal hernias, ventral hernia (recurrent)) : reports: Benign prostate hypertrophy (w thick bladder wall and occ urine ret ention) Psych: reports: None Derm: reports: None Goals of Care: Current work-up for possible vertebral artery stenosis, and to return to independent living in his own home. Plan: 1. Document in chart full CODE STATUS with advanced wishes to change to DO NOT RESUSCITATE if he becomes bedbound. 2. Strongly recommend use of cane or walking stick to avoid falls. 3. Consult with neurology about memory loss, possible movement disorder in addition to his vertebral artery stenosis Code Status: Attempt Resuscitation Time spent on advance care plannin minutes
[2021-05-02 05:29] LABS: BASOPHILS # (AUTO) 0.1 10^3/uL (0.0-0.1); BASOPHILS % (AUTO) 0.9 %; EOSINOPHILS # (AUTO) 0.5 10^3/uL (0.0-0.7); EOSINOPHILS % (AUTO) 6.9 %; HCT - HEMATOCRIT 39.6 % (42.0-52.0); HGB - HEMOGLOBIN 12.4 g/dL (14.0-18.0); LYMPHOCYTES # (AUTO) 1.8 10^3/uL (1.5-3.5); LYMPHOCYTES % (AUTO) 23.6 %; MEAN CORPUSCULAR HGB CONC 31.3 g/dL (32.0-36.0); MEAN CORPUSCULAR VOLUME 86.1 fL (80.0-94.0); MEAN PLATELET VOLUME 10.3 fL (7.4-11.4); MONOCYTES # (AUTO) 0.7 10^3/uL (0.0-1.0); MONOCYTES % (AUTO) 9.1 %; NEUTROPHILS # (AUTO) 4.6 10^3/uL (1.5-6.6); NEUTROPHILS % (AUTO) 59.2 %; PLT - PLATELET COUNT 195 10^3/uL (130-450); RED CELL DISTRIBUTION WIDTH 14.7 % (12.0-15.0); WHITE BLOOD COUNT 7.7 x10^3/uL (4.8-10.8)
[2021-05-02 05:41] LABS: BUN - BLOOD UREA NITROGEN 17 mg/dL (6-20); CALCIUM 9.3 mg/dL (8.5-10.3); CARBON DIOXIDE - CO2 26 mmol/L (21-32); CHLORIDE 105 mmol/L (101-111); CHOL/HDL RATIO 3.8 (<5.0); CHOLESTEROL 145 mg/dL; CREATININE 0.8 mg/dL (0.6-1.2); GFR - MDRD 92 (>89); GLUCOSE 112 mg/dL (70-100); HDL CHOLESTEROL 38 mg/dL; LDL CHOLESTEROL,CALCULATED 90 mg/dL; LDL/HDL RATIO 2.4 (<3.6); POTASSIUM 4.3 mmol/L (3.5-5.0); SODIUM 139 mmol/L (135-145); TRIGLYCERIDES 87 mg/dL; VLDL CHOLESTEROL 17 mg/dL
[2021-05-02] MEDS ORDERED: TAMSULOSIN 0.4 MG CAPSULE PO SCH (09:00)
[2021-05-02] MEDS ORDERED: diltiaZEM CD 120 MG CAPSULE PO SCH (09:00)
[2021-05-02] MEDS: PANTOPRAZOLE 40 MG TABLET PO SCH (10:04)
[2021-05-02] MEDS: FLECAINIDE 50 MG TABLET PO SCH ×2 (10:04→20:25)
[2021-05-02] MEDS: ASPIRIN CHEW 81 MG TABLET PO SCH (10:04)
--- NOTE | 2021-05-02 10:35 | PHARMACY PROGRESS NOTE ---
- Best Possible Medication History Admit Date and Time: 05/01/211810 Processed by: Pharmacy Medication History completed: Yes Patient Interview: Completed (PATIENT ABLE TO CONFIRM HOME MEDICATIONS) As the person ultimately responsible for medication therapy, providers are able to order a medication from an existing home medication list in [facility] via the "Reconcile Routine" prior to Confirmation of that medication by sales support administrator. Such practice is discouraged except when the physician, in their clinical judgment, deems that a medical need exists for a medication without regard to previous use.
[2021-05-02] MEDS ORDERED: IOVERSOL 320 100 ML VIAL IVP ONE (11:49)
[2021-05-02 13:08] LABS: ESTIMATED AVERAGE GLUCOSE 117 mg/dL (70-100); HEMOGLOBIN A1c% 5.7 % (4.27-6.07)
[2021-05-02] MEDS: SODIUM CHLORIDE FLUSH 0.9% 10 ML SYRINGE IVP SCH ×3 (13:38→20:24)
--- NOTE | 2021-05-02 13:59 | Discharge Plan ---
Discharge Plan Problem Reviewed?: Yes Disposition: Home Health Service Condition: Stable Diet: Regular Activity Restrictions: Activity as Tolerated Health Concerns: You were admitted to the hospital because of a fall and poor balance which made us concerned for a potential stroke. We obtained an MRI of your brain which showed . It was noted during this hospitalization that your heart rate has been low in the 40s and 50s. You are on diltiazem which can lower your heart rate and we are concerned this may be causing you to fall and so we recommend discontinuing the diltiazem. We have started you on another medication given your blood pressure has been elevated. Plan of Treatment: Please stop taking the diltiazem as I am concerned this may be lowering your heart rate too much. You will need to follow-up with your primary care physician to monitor your heart rate and they can consider resuming this in the future. I have prescribed you a new medication called amlodipine to help control your blood pressure. You were also found to have borderline vitamin B12 deficiency and so we have ordered further blood work to see if you have deficiency of vitamin B12 or not as this may potentially explain your poor balance. It is important that you ambulate with a walker to decrease your risk of falls. We have recommended outpatient physical therapy for you. Additional Instructions or Follow Up instructions: You will need follow-up with your primary care physician in 1 week and a neurology referral is recommended. You should also follow-up with your sugar cane grower given your heart rate has been low at times. Follow-Up Care: Home Health - PT, Home Health - OT No Smoking: If you smoke, Please STOP! Call for help.
[2021-05-02] MEDS: amLODIPine 5 MG TABLET PO SCH (14:06)
[2021-05-02] MEDS: IOVERSOL 320 100 ML VIAL IVP ONE (14:08)
--- NOTE | 2021-05-02 14:15 | MRI Report ---
PROCEDURE: Brain W/O INDICATIONS: Neuro deficit. Ataxia. Stroke suspected. TECHNIQUE: Noncontrast axial T1 spin echo, axial T2 fast spin echo, sagittal and axial FLAIR, coronal T2 fast sp in echo, axial gradient echo, axial diffusion and ADC through the brain. COMPARISON: None. FINDINGS: Image quality: Excellent. CSF Spaces: Basal cisterns are patent. No extra-axial fluid collections. Ventricles are normal in size and shape. Brain: Tiny focus of diffusion in the right splenium of the corpus callosum (series 14 image 43). Adv anced global cerebral volume loss and severe chronic microvascular ischemic changes. Remote left thal amus hemorrhage with hemosiderin deposition. No MR evidence of acute intracranial hemorrhage. No find ings of mass effect or midline shift. Skull and face: Calvarium has normal marrow signal. Orbits appear normal. Sinuses: Sinuses and mastoids are clear. IMPRESSION: Tiny focus of restricted diffusion in the right splenium of the corpus callosum, consistent with acut e infarct. Advanced global cerebral volume loss and severe chronic microvascular ischemic changes. Remote small hemorrhage in the left thalamus. Reviewed by: Ramon Zepeda MD on 05/02/2021 2:13 PM PDT Approved by: Ramon Zepeda MD on 05/02/2021 2:13 PM PDT Station ID: [id number]
--- NOTE | 2021-05-02 16:52 | CT Report ---
PROCEDURE: CHEST W INDICATIONS: lung nodule CONTRAST: IV CONTRAST: Optiray 320 ml: 100 PO CONTRAST: *NO PO CONTRAST TECHNIQUE: After the administration of intravenous contrast, 1 mm axial images were acquired from the pulmonary apices through the posterior costophrenic angles. Axial 5 mm soft tissue kernel reconstructions were performed as well as 8 mm axial MIP and coronal and sagittal 5 mm reformations. For radiation dose reduction, the following was used: automated exposure control, adjustment of mA and/or kV according to patient size. COMPARISON: CT abdomen pelvis 08/23/2020 and 07/22/2019, 03/11/2020 FINDINGS: Image quality: Excellent. Lungs and pleura: Central and peripheral airways are patent. No spiculated subpleural nodule is pres ent in the lateral right middle lobe with extension to the overlying pleural surface and subjacent va scular branch. This measures about 1.6 x 1.0 cm and demonstrates a 0.9 cm solid component. Slightly m ore caudal to this is a solid 6 mm lung nodule also seen previously. Calcified nodules present in the right perihilar right upper lobe measuring 5 mm., And another small calcification is present in the posterior aspect of the right upper lobe, 4/91. 5 mm calcification is present at the left lung apex, 4/54. There are no other masses or nodules. No dense consolidations except for mild platelike atelect atic change at the right lung base due to eventration of the right hemidiaphragm. No pleural effusion s. Mediastinum: Heart size is enlarged and there is heavy coronary artery calcification.. No pericardi al effusion. No mediastinal or hilar adenopathy by size criteria. Main pulmonary artery is dilated m easuring 4 cm in diameter. The ascending thoracic aorta is ectatic at 4.0 cm. Moderate aortic arch ca lcification. Esophagus is normal in caliber. No hiatal hernia. Bones and chest wall: No suspicious bony lesions. No vertebral body compression fractures. No axil chester or supraclavicular adenopathy by size criteria. The thyroid is normal in size and there are no incidental findings.. Abdomen: Visualized upper abdomen demonstrates a common duct stent, pneumobilia, cholecystectomy, col onic obstipation, and nonvisualized left kidney due to incomplete ascention. IMPRESSION: 1.6 x 1.0 cm solid spiculated subpleural right middle lobe lung nodule has increased in size since pr eviously seen on 07/22/2019 where it measured about 1.2 cm. Given solid component of greater than 8 m m, PET/CT is recommended to assess for neoplasm. 2. 6 mm right middle lobe lung nodule has also been present since this time and may be benign. 3. Calcified upper lobe granulomas bilaterally. 4. Cardiomegaly and coronary artery calcification. 5. Pulmonary artery enlargement suggesting pulmonary artery hypertension. Reviewed by: Skyla Vogel MD on 05/02/2021 4:51 PM PDT Approved by: Skyla Vogel MD on 05/02/2021 4:51 PM PDT Station ID: [id number]
--- NOTE | 2021-05-02 17:42 | PROVIDER PROGRESS NOTE ---
Subjective - Prog Note Date Prog Note Date: 05/02/21 - Subjective Subjective: He feels like his balance is improved and is able to ambulate today. He does admit to feeling confused over the past few weeks. He really wants to go home and has called his daughter multiple times to pick him up. I spoke with her and she feels that he is confused and is worried about him going home alone today. Current Medications - Current Medications Current Medications: Active Medications Acetaminophen (Acetaminophen 325 Mg Tablet) 650 mg PO Q4HR PRN PRN Reason: Pain 1 to 4 Amlodipine Besylate (Amlodipine 5 Mg Tablet) [address] [facility] Last Admin: 05/02/21 14:06 Dose: 5 mg Documented by: Aspirin (Aspirin Chew 81 Mg Tablet) [address] [facility] Last Admin: 05/02/21 10:04 Dose: 81 mg Documented by: Atorvastatin Calcium (Atorvastatin 40 Mg Tablet) [address] [facility] Last Admin: 05/01/21 20:33 Dose: 40 mg Documented by: Flecainide Acetate (Flecainide 50 Mg Tablet) [address] [facility] Last Admin: 05/02/21 10:04 Dose: 50 mg Documented by: Ondansetron HCl (Ondansetron Odt 4 Mg Tablet) 4 mg TL Q6HR PRN PRN Reason: Nausea / Vomiting Ondansetron HCl (Ondansetron 4 Mg/2 Ml Vial) 4 mg IVP Q6HR PRN PRN Reason: Nausea / Vomiting Pantoprazole Sodium (Pantoprazole 40 Mg Tablet) [address] [facility] Last Admin: 05/02/21 10:04 Dose: 40 mg Documented by: Sodium Chloride (Sodium Chloride Flush 0.9% 10 Ml Syringe) 10 ml IVP PRN PRN PRN Reason: NEEDED PER PROVIDER ORDERS Sodium Chloride (Sodium Chloride Flush 0.9% 10 Ml Syringe) 10 ml IVP 0100,0900,1700 [facility] Last Admin: 05/02/21 13:38 Dose: Not Given Documented by: Tamsulosin HCl (Tamsulosin 0.4 Mg Capsule) 0.[address] [facility] Tamsulosin [Flomax] 0.4 mg PO QPM 02/05/16 Flecainide [Tambocar] 50 mg PO BID 07/22/19 Atorvastatin [Lipitor] 10 mg PO QPM 07/23/19 Rivaroxaban [Xarelto] 20 mg PO QDDINNER 07/23/19 diltiaZEM CD [Cardizem Cd] 120 mg PO DAILY 07/23/19 Omeprazole 20 mg PO DAILY 08/28/19 Furosemide [Lasix] 20 mg PO DAILY 05/02/21 Sucralfate [Carafate] 1 gm PO BID 05/02/21 Objective - Vital Signs/Intake & Output Reviewed Vital Signs: Yes Vital Signs: Vital Signs x48h Temp Pulse Pulse Pulse Resp BP BP 05/02/21 15:46 36.4 C L 52 L 20 183/72 H 05/02/21 12:27 36.4 C L 96 18 207/54 H 05/02/21 10:40 56 L 05/02/21 10:30 50 L 56 L 175/77 H BP Pulse Ox 05/02/21 15:46 100 05/02/21 12:27 100 05/02/21 10:40 169/92 H 05/02/21 10:30 169/92 H Intake & Output: Intake & Output 04/29/21 04/30/21 05/01/21 05/02/21 23:59 23:59 23:59 23:59 Intake Total 200 Output Total 725 2400 Balance -525 -2400 - Objective General Appearance: positive: No acute distress, Alert Eyes Bilateral: positive: Normal inspection, Conjunctivae nml ENT: positive: ENT inspection nml Neck: positive: Nml inspection Respiratory: positive: No respiratory distress. negative: Wheezes, Rales Cardiovascular: positive: Bradycardia. negative: Irregularly irregular, Tachycardia, Systolic murmur Abdomen: positive: Non-tender, No distention. negative: Tenderness Skin: positive: Warm, Dry Extremities: positive: No pedal edema Neurologic/Psychiatric: positive: Sensation nml, Disoriented to time (He was oriented to the month but not year. He was able to tell me the president.), Other (He has mild dysmetria with the right upper extremity. [id number] is normal.). negative: Disoriented to person, Disoriented to place, Facial droop, Slurred/abnml speech - Lab Results Fish Bones: 05/02/21 04:57 05/02/21 04:57 Other Labs: Lab Results x24hrs 05/02/21 05/02/21 05/02/21 Range/Units 04:57 04:57 04:57 WBC (4.8-10.8) x10^3/uL RBC (4.70-6.10) 10^6/uL Hgb (14.0-18.0) g/dL Hct (42.0-52.0) % MCV (80.0-94.0) fL MCH (27.0-31.0) pg MCHC (32.0-36.0) g/dL RDW (12.0-15.0) % Plt Count (130-450) 10^3/uL MPV (7.4-11.4) fL Neut # (Auto) (1.5-6.6) 10^3/uL Lymph # (Auto) (1.5-3.5) 10^3/uL [place] # (Auto) (0.0-1.0) 10^3/uL Eos # (Auto) (0.0-0.7) 10^3/uL Baso # (Auto) (0.0-0.1) 10^3/uL Absolute Nucleated RBC x10^3/uL Nucleated RBC % /100WBC Sodium 139 (135-145) mmol/L Potassium 4.3 (3.5-5.0) mmol/L Chloride 105 (101-111) mmol/L Carbon Dioxide 26 (21-32) mmol/L Anion Gap 8.0 (6-13) BUN 17 (6-20) mg/dL Creatinine 0.8 (0.6-1.2) mg/dL Estimated GFR (MDRD) 92 (>89) Glucose 112 H (70-100) mg/dL Estimat Average Glucose 117 H (70-100) mg/dL Hemoglobin A1c % 5.7 (4.27-6.07) % Calcium 9.3 (8.5-10.3) mg/dL Triglycerides 87 ( - 149) mg/dL Cholesterol 145 ( - 199) mg/dL LDL Cholesterol, Calc 90 ( - 129) mg/dL VLDL Cholesterol 17 mg/dL HDL Cholesterol 38 L (60 - ) mg/dL LDL/HDL Ratio 2.4 (<3.6) Cholesterol/HDL Ratio 3.8 (<5.0) Vitamin B12 274 (180-914) pg/mL Folate 31.00 (5.90 - >24.8) ng/mL 05/02/21 Range/Units 04:57 WBC 7.7 (4.8-10.8) x10^3/uL RBC 4.60 L (4.70-6.10) 10^6/uL Hgb 12.4 L (14.0-18.0) g/dL Hct 39.6 L (42.0-52.0) % MCV 86.1 (80.0-94.0) fL MCH 27.0 (27.0-31.0) pg MCHC 31.3 L (32.0-36.0) g/dL RDW 14.7 (12.0-15.0) % Plt Count 195 (130-450) 10^3/uL MPV 10.3 (7.4-11.4) fL Neut # (Auto) 4.6 (1.5-6.6) 10^3/uL Lymph # (Auto) 1.8 (1.5-3.5) 10^3/uL [place] # (Auto) 0.7 (0.0-1.0) 10^3/uL Eos # (Auto) 0.5 (0.0-0.7) 10^3/uL Baso # (Auto) 0.1 (0.0-0.1) 10^3/uL Absolute Nucleated RBC 0.00 x10^3/uL Nucleated RBC % 0.0 /100WBC Sodium (135-145) mmol/L Potassium (3.5-5.0) mmol/L Chloride (101-111) mmol/L Carbon Dioxide (21-32) mmol/L Anion Gap (6-13) BUN (6-20) mg/dL Creatinine (0.6-1.2) mg/dL Estimated GFR (MDRD) (>89) Glucose (70-100) mg/dL Estimat Average Glucose (70-100) mg/dL Hemoglobin A1c % (4.27-6.07) % Calcium (8.5-10.3) mg/dL Triglycerides ( - 149) mg/dL Cholesterol ( - 199) mg/dL LDL Cholesterol, Calc ( - 129) mg/dL VLDL Cholesterol mg/dL HDL Cholesterol (60 - ) mg/dL LDL/HDL Ratio (<3.6) Cholesterol/HDL Ratio (<5.0) Vitamin B12 (180-914) pg/mL Folate (5.90 - >24.8) ng/mL Assessment/Plan - Problem List (1) Stroke Impression: MRI confirmed right corpus callosum infarct. There is also a remote small hemorrhage in the past of the left thalamus. His overall deficits appear improved but he still does have confusion which I suspect is likely related to the stroke. We did allow for permissive hypertension and we have started him on amlodipine today with the goal of slowly lowering his blood pressure. I spoke with neurology at [facility] in [place] who stated given this is a small infarct, his Xarelto can be resumed in about 5 days. We will keep him on aspirin in the interim and resume Xarelto in 5 days. He will remain on Lipitor. If his blood pressure stabilizes then we can plan for discharge home tomorrow with family. He will need outpatient PT. (2) Ataxia Impression: Suspect is related to the infarct although this could be due to another underlying neurologic condition. B12 was checked and this was borderline. I have ordered for MMA and homocystine. He may benefit from B12 supplementation. He will need continued outpatient follow-up with his neurologist, Dr. Sri Emerson. (3) Memory loss or impairment Impression: This has been an ongoing problem now for at least a few weeks if not longer. I have informed the daughter that he is not safe to live alone and he cannot drive. She is in agreement with this. She will have a family member live with him until they can set up long-term care. We will have social work discuss with the family as well. (4) Paroxysmal atrial fibrillation Impression: He is bradycardic today with heart rates in the 40s. We have held diltiazem but continued flecainide. We will likely discontinue diltiazem on discharge and have him follow-up with his primary care physician or recruitment coordinator. We are holding Xarelto given the recent stroke. (5) BPH (benign prostatic hyperplasia) Impression: Continue Flomax.
[2021-05-02] MEDS: ATORVASTATIN 40 MG TABLET PO SCH (20:25)
[2021-05-02] MEDS: TAMSULOSIN 0.4 MG CAPSULE PO SCH (20:25)
[2021-05-03] MEDS: SODIUM CHLORIDE FLUSH 0.9% 10 ML SYRINGE IVP SCH ×3 (00:07→17:15)
[2021-05-03] MEDS: PANTOPRAZOLE 40 MG TABLET PO SCH (06:03)
[2021-05-03 06:20] LABS: BASOPHILS % (AUTO) 0.5 %; EOSINOPHILS # (AUTO) 0.2 10^3/uL (0.0-0.7); EOSINOPHILS % (AUTO) 2.5 %; HCT - HEMATOCRIT 42.1 % (42.0-52.0); HGB - HEMOGLOBIN 13.3 g/dL (14.0-18.0); LYMPHOCYTES # (AUTO) 1.5 10^3/uL (1.5-3.5); LYMPHOCYTES % (AUTO) 18.7 %; MEAN CORPUSCULAR HEMOGLOBIN 27.1 pg (27.0-31.0); MEAN CORPUSCULAR HGB CONC 31.6 g/dL (32.0-36.0); MEAN CORPUSCULAR VOLUME 85.9 fL (80.0-94.0); MEAN PLATELET VOLUME 10.2 fL (7.4-11.4); MONOCYTES # (AUTO) 0.6 10^3/uL (0.0-1.0); MONOCYTES % (AUTO) 7.6 %; NEUTROPHILS # (AUTO) 5.7 10^3/uL (1.5-6.6); NEUTROPHILS % (AUTO) 70.5 %; PLT - PLATELET COUNT 209 10^3/uL (130-450); RED CELL DISTRIBUTION WIDTH 14.6 % (12.0-15.0); WHITE BLOOD COUNT 8.1 x10^3/uL (4.8-10.8)
[2021-05-03 06:32] LABS: CALCIUM 9.2 mg/dL (8.5-10.3); CREATININE 0.8 mg/dL (0.6-1.2); POTASSIUM 3.8 mmol/L (3.5-5.0)
[2021-05-03] MEDS ORDERED: PANTOPRAZOLE 40 MG TABLET PO SCH (07:00)
[2021-05-03] MEDS: ASPIRIN CHEW 81 MG TABLET PO SCH (08:15)
[2021-05-03] MEDS: FLECAINIDE 50 MG TABLET PO SCH ×2 (08:15→21:23)
[2021-05-03] MEDS: lisinopriL 5 MG TABLET PO SCH (08:15)
[2021-05-03] MEDS: amLODIPine 5 MG TABLET PO SCH (08:15)
[2021-05-03 11:34] LABS: HOMOCYSTEINE 13.4 umol/L (<11.4)
--- NOTE | 2021-05-03 17:44 | PROVIDER PROGRESS NOTE ---
Subjective - Prog Note Date Prog Note Date: 05/03/21 - Subjective Subjective: He is more confused today. He believes he was just out in town and is here in the hospital to visit her friend. He knows he is here for stroke. He denies any weakness. He has been calling his daughter multiple times of the day. She is concerned that he is much more confused than usual. Current Medications - Current Medications Current Medications: Active Medications Acetaminophen (Acetaminophen 325 Mg Tablet) 650 mg PO Q4HR PRN PRN Reason: Pain 1 to 4 Amlodipine Besylate (Amlodipine 5 Mg Tablet) 5 mg PO DAILY [facility] Last Admin: 05/03/21 08:15 Dose: 5 mg Documented by: Aspirin (Aspirin Chew 81 Mg Tablet) 81 mg PO DAILY [facility] Last Admin: 05/03/21 08:15 Dose: 81 mg Documented by: Atorvastatin Calcium (Atorvastatin 40 Mg Tablet) 40 mg PO QPM [facility] Last Admin: 05/02/21 20:25 Dose: 40 mg Documented by: Flecainide Acetate (Flecainide 50 Mg Tablet) 50 mg PO BID [facility] Last Admin: 05/03/21 08:15 Dose: 50 mg Documented by: Lisinopril (Lisinopril 5 Mg Tablet) 10 mg PO DAILY [facility] Last Admin: 05/03/21 08:15 Dose: 10 mg Documented by: Ondansetron HCl (Ondansetron Odt 4 Mg Tablet) 4 mg TL Q6HR PRN PRN Reason: Nausea / Vomiting Ondansetron HCl (Ondansetron 4 Mg/2 Ml Vial) 4 mg IVP Q6HR PRN PRN Reason: Nausea / Vomiting Pantoprazole Sodium (Pantoprazole 40 Mg Tablet) 40 mg PO QDAC [facility] Last Admin: 05/03/21 06:03 Dose: 40 mg Documented by: Sodium Chloride (Sodium Chloride Flush 0.9% 10 Ml Syringe) 10 ml IVP PRN PRN PRN Reason: NEEDED PER PROVIDER ORDERS Sodium Chloride (Sodium Chloride Flush 0.9% 10 Ml Syringe) 10 ml IVP 0100,0900,1700 [facility] Last Admin: 05/03/21 17:15 Dose: 10 ml Documented by: Tamsulosin HCl (Tamsulosin 0.4 Mg Capsule) 0.4 mg PO QPM [facility] Last Admin: 05/02/21 20:25 Dose: 0.4 mg Documented by: Tamsulosin [Flomax] 0.4 mg PO QPM 02/05/16 Flecainide [Tambocar] 50 mg PO BID 07/22/19 Atorvastatin [Lipitor] 10 mg PO QPM 07/23/19 Rivaroxaban [Xarelto] 20 mg PO QDDINNER 07/23/19 diltiaZEM CD [Cardizem Cd] 120 mg PO DAILY 07/23/19 Omeprazole 20 mg PO DAILY 08/28/19 Furosemide [Lasix] 20 mg PO DAILY 05/02/21 Sucralfate [Carafate] 1 gm PO BID 05/02/21 Objective - Vital Signs/Intake & Output Reviewed Vital Signs: Yes Vital Signs: Vital Signs x48h Temp Pulse Resp BP Pulse Ox 05/03/21 15:45 36.8 C 63 20 151/62 H 100 05/03/21 13:00 35.9 C L 50 L 18 138/53 H 96 Intake & Output: Intake & Output 04/30/21 05/01/21 05/02/21 05/03/21 23:59 23:59 23:59 23:59 Intake Total 875 212 5602 Output Total 725 2650 550 Balance -525 -2100 460 - Objective General Appearance: positive: No acute distress, Alert Eyes Bilateral: positive: Normal inspection, Conjunctivae nml ENT: positive: ENT inspection nml Neck: positive: Nml inspection Respiratory: positive: No respiratory distress. negative: Wheezes, Rales Cardiovascular: positive: Regular rate & rhythm. negative: Tachycardia, Systolic murmur Abdomen: positive: Non-tender, No distention. negative: Tenderness Skin: positive: Warm, Dry Extremities: positive: No pedal edema Neurologic/Psychiatric: positive: Disoriented to time, Other (Normal [id number] and [id number]. He is oriented to self and location but not to year or month. He knows who the president is.). negative: Disoriented to person, Disoriented to place, Facial droop, Slurred/abnml speech - Lab Results Fish Bones: 05/03/21 05:20 05/03/21 05:20 Other Labs: Lab Results x24hrs 05/03/21 05/03/21 05/02/21 Range/Units 05:20 05:20 14:05 WBC 8.1 (4.8-10.8) x10^3/uL RBC 4.90 (4.70-6.10) 10^6/uL Hgb 13.3 L (14.0-18.0) g/dL Hct 42.1 (42.0-52.0) % MCV 85.9 (80.0-94.0) fL MCH 27.1 (27.0-31.0) pg MCHC 31.6 L (32.0-36.0) g/dL RDW 14.6 (12.0-15.0) % Plt Count 209 (130-450) 10^3/uL MPV 10.2 (7.4-11.4) fL Neut # (Auto) 5.7 (1.5-6.6) 10^3/uL Lymph # (Auto) 1.5 (1.5-3.5) 10^3/uL [place] # (Auto) 0.6 (0.0-1.0) 10^3/uL Eos # (Auto) 0.2 (0.0-0.7) 10^3/uL Baso # (Auto) 0.0 (0.0-0.1) 10^3/uL Absolute Nucleated RBC 0.00 x10^3/uL Nucleated RBC % 0.0 /100WBC Sodium 137 (135-145) mmol/L Potassium 3.8 (3.5-5.0) mmol/L Chloride 102 (101-111) mmol/L Carbon Dioxide 24 (21-32) mmol/L Anion Gap 11.0 (6-13) BUN 15 (6-20) mg/dL Creatinine 0.8 (0.6-1.2) mg/dL Estimated GFR (MDRD) 92 (>89) Glucose 147 H (70-100) mg/dL Calcium 9.2 (8.5-10.3) mg/dL Homocysteine 13.4 H (<11.4) umol/L Assessment/Plan - Problem List (1) Stroke Impression: MRI confirmed a right corpus callosum infarct. 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 His motor deficits are improved but he still has confusion and this is worse today which I suspect may be related to delirium as well. We have begun to lower his blood pressure now and we have added lisinopril and amlodipine. He remains on aspirin and Lipitor. The plan will be to resume Xarelto on discharge as neurology recommended this would be okay to resume in 3 to 5 days after his infarct. If his blood pressure stable then he can be discharged home tomorrow. I am hopeful that his confusi on/delirium will improve as he returns to his familiar surroundings. (2) Delirium Impression: He appears delirious today which I suspect is likely related to his underlying cognitive impairment and recent stroke. He is also not in his familiar surroundings or surrounded by his loved ones. We will avoid all sedatives and monitor him overnight. I suspect he will be able to be discharged home tomorrow. I spoke with his daughter at length and informed her that delirium usually improves as the patient returns to their familiar surroundings although this can take quite some time. He also has multiple risk factors including his age, cognitive impairment, and recent stroke. (3) Hypertension Impression: His blood pressure is better controlled today after initiating amlodipine yesterday. It is still around the 160s so I have added lisinopril with a goal systolic blood pressure less than 150 and this can be further reduced towards normotension on an outpatient basis. If his blood pressure is stable over next 24 hours then he can be discharged home tomorrow. (4) Ataxia Impression: This appears to have resolved. He has been working with physical therapy and home health PT/OT has been recommended. (5) Memory loss or impairment Impression: He most definitely appears to have increased memory loss today and is delirious as mentioned above. He likely has calm impairment at baseline due to his multiple strokes. He will need follow-up with his neurologist on discharge. I have ordered vitamin B12 and folate levels which came back as borderline now for B12 deficiency. MMA and homocystine levels are pending. He may ultimately benefit from B12 supplementation. (6) Paroxysmal atrial fibrillation Impression: We have discontinued his diltiazem due to bradycardia. He has remained rate controlled without it. We will continue aspirin and resume anticoagulation on discharge which will be 3 to 5 days after the stroke as recommended by neurology. (7) BPH (benign prostatic hyperplasia) Impression: Continue Flomax.
[2021-05-03] MEDS: TAMSULOSIN 0.4 MG CAPSULE PO SCH (21:23)
[2021-05-03] MEDS: ATORVASTATIN 40 MG TABLET PO SCH (21:23)
[2021-05-03 21:41] LABS: BILIRUBIN,URINE NEGATIVE (NEGATIVE); GLUCOSE, URINE (UA) NEGATIVE (NEGATIVE); KETONES,URINE (UA) TRACE mg/dL (NEGATIVE); LEUKOCYTE ESTERASE, URINE NEGATIVE (NEGATIVE); NITRITE,URINE NEGATIVE (NEGATIVE); OCCULT BLOOD,URINE TRACE-INTA (NEGATIVE); PROTEIN,URINE TRACE mg/dL (NEGATIVE); UROBILINOGEN,URINE 0.2 (NORMAL) E.U./dL (NORMAL)
[2021-05-03 21:47] LABS: BACTERIA,URINE Rare /HPF (None Seen); CLARITY,URINE CLEAR (CLEAR); RBC,URINE 0-5 /HPF (0-5); SQUAMOUS EPITHELIAL CELL,UR RARE Squamous (<= Few); WBC,URINE 0-3 /HPF (0-3)
[2021-05-04] MEDS: SODIUM CHLORIDE FLUSH 0.9% 10 ML SYRINGE IVP SCH ×2 (04:51→09:14)
[2021-05-04 06:29] LABS: BASOPHILS # (AUTO) 0.1 10^3/uL (0.0-0.1); BASOPHILS % (AUTO) 0.6 %; EOSINOPHILS # (AUTO) 0.2 10^3/uL (0.0-0.7); EOSINOPHILS % (AUTO) 1.6 %; HCT - HEMATOCRIT 38.1 % (42.0-52.0); HGB - HEMOGLOBIN 12.2 g/dL (14.0-18.0); LYMPHOCYTES # (AUTO) 1.5 10^3/uL (1.5-3.5); LYMPHOCYTES % (AUTO) 14.8 %; MEAN CORPUSCULAR HEMOGLOBIN 27.1 pg (27.0-31.0); MEAN CORPUSCULAR VOLUME 84.7 fL (80.0-94.0); MEAN PLATELET VOLUME 10.2 fL (7.4-11.4); MONOCYTES # (AUTO) 0.9 10^3/uL (0.0-1.0); MONOCYTES % (AUTO) 8.6 %; NEUTROPHILS # (AUTO) 7.5 10^3/uL (1.5-6.6); NEUTROPHILS % (AUTO) 74.1 %; PLT - PLATELET COUNT 206 10^3/uL (130-450); RED CELL DISTRIBUTION WIDTH 14.6 % (12.0-15.0); WHITE BLOOD COUNT 10.1 x10^3/uL (4.8-10.8)
[2021-05-04 06:33] LABS: CALCIUM 8.8 mg/dL (8.5-10.3); CREATININE 0.8 mg/dL (0.6-1.2)
[2021-05-04] MEDS: PANTOPRAZOLE 40 MG TABLET PO SCH (06:41)
[2021-05-04] MEDS: ASPIRIN CHEW 81 MG TABLET PO SCH (09:12)
[2021-05-04] MEDS: lisinopriL 5 MG TABLET PO SCH (09:13)
[2021-05-04] MEDS: FLECAINIDE 50 MG TABLET PO SCH (09:13)
[2021-05-04] MEDS: amLODIPine 5 MG TABLET PO SCH (09:14)
--- NOTE | 2021-05-04 11:03 | Discharge Plan ---
Discharge Plan Problem Reviewed?: Yes Disposition: Home Health Service Condition: Stable Prescriptions: Atorvastatin [Lipitor] 40 mg PO QPM #30 tablet lisinopriL [Zestril] 10 mg PO DAILY #60 tablet Diet: Regular Activity Restrictions: Activity as Tolerated Shower Restrictions: No (fall precaution) Instruction Topics: Stroke Sx, Stroke Self Care, Stroke Prepare Home After Health Concerns: Your mental status has improved and return to your baseline. You were admitted to the hospital because of a fall and poor balance which made us concerned for a potential stroke. We obtained an MRI of your brain which showed Tiny size stroke at your right brain. It was noted during this hospitalization that your heart rate has been low in the 40s and 50s. You are on diltiazem which can lower your heart rate and we are concerned this may be causing you to fall and so we recommend discontinuing the diltiazem. We have started you on another med ication Lisinopril given your blood pressure has been elevated.Your home medication Lipitor dosage is also increased to 40 mg daily. You may resume your Xarelto as neurologist's recommendation. You may followup with neurologist as out-pt. Home health PT and OT are arranged for you. Your CT scan of the chest show nodules in your right lung, you may follow-up with your PCP and oncologist as out-pt and You may have PET/CT to assess for neoplasm. Plan of Treatment: Please stop taking the diltiazem as I am concerned this may be lowering your heart rate too much. You will need to follow-up with your primary care physician to monitor your heart rate and they can consider resuming this in the future. I have prescribed you a new medication called Lisinopril to help cont rol your blood pressure. It is important that you ambulate with a walker to decrease your risk of falls. We have recommended Home health physical therapy And occupational therapy for you. Care Goals: Stabilization and improvement of your medical conditions Assessment: Discussed the care plan and medication change for you, answered your questions, you understood Additional Instructions or Follow Up instructions: You will need follow-up with your primary care physician in 1 week and a neurology referral is recommended. You should also follow-up with your rehabilitation inspector given your heart rate has been low at times, Follow-up with oncologist for assessment of your lung nodules Follow-Up Care: Home Health - PT, Home Health - OT No Smoking: If you smoke, Please STOP! Call for help.
--- NOTE | 2021-05-04 11:22 | DISCHARGE SUMMARY ---
Discharge Summary Admit Date: 05/01/21 Discharge Date: 05/04/21 Discharging Provider: Phan Queen Primary Care Provider: Angel Gallo Condition at Discharge: Stable Discharge Disposition: Home Health Service Discharge Facility Name: home - DIAGNOSES Discharge Diagnoses with Status of Each Condition: (1) Stroke MRI confirmed a tiny right corpus callosum infarct. 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 His motor deficits are improved and his mental status return to his baseline. pt is added lisinopril and Lipitor and resume Xarelto on discharge as neurology recommended, We will arrange home he alth PT and OT for patient. pt had hx of multiple falls, and hx of thalamic hemorrhage, as recommended by neurologist to resume Xarelto but not on dual Antiplatelets therapy. (2) Delirium resolved. Patient's mental status is returned to his baseline. (3) Hypertension Controlled, patient is prescribed lisinopril p.o and resume home medication Lasi x (4) Ataxia resolved. 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 (6) Paroxysmal atrial fibrillation stable, discontinued his diltiazem due to bradycardia and resume anticoagulation on discharge as recommended by neurology. (7) BPH (benign prostatic hyperplasia) stable, Continue Flomax. (8) Right middle lobe pulmonary nodule repeat CT show increased size nodule at right middle lobe, recommended pt to followup with oncologist to have PET study. - HPI History of Present Illness: refer from Dr. Campos's HPI on 05/01/21 85-year-old white male who has chronic atrial fibrillation and is on Xarelto. He is without any major medical illnesses. Was walking his dog yesterday when he fell. Landed on his right side and hit his head. He denies any antecedent loss of consciousness, dizziness, chest pain, palpitations. He is compliant with his medications. Has not been ill. He is very clear that this was [facility] because he tripped. Yet, in spite of denying antecedent dizziness, he admits that he has been falling more than he would like. He cannot quite put his finger on it. He thinks somewhere between last spring and summer something happened. He is more unsteady on his feet. He has fallen a few times. All of it because his feet do not move any trips. He has not been using a cane or a wa lker. He is not quite clear when it all started. He does not remember hitting his head before this. Today he came in because he was more unsteady Than he would like. Even though he had fallen multiple times this last year alone, he felt that somehow he felt worse today than he usually does after a fall. Ferney like he was getting confused. No recurrent falls Between yesterday and today. He was seen by the emergency room provider and initial vitals showed a temperature of 35.8, heart rate 60, blood pressure 176/69, respirations 20 and is 99% on room air. On physical examination there were findings of cerebellar ataxia. He was not able to go home because of that. CT of the head was negative. 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 Telestroke neurology was then consulted, Dr. Tobias, who stated that he did not need to be transferred for LVO retrieval. He does recommend admission for MRI, rehab, and continued evaluation. - HOSPITAL COURSE Hospital Course: Patient was admitted for evaluation of multiple falls and increases unsteady gait. pt's MRI confirmed a tiny right corpus callosum infarct. Patient had a physical therapist and occupational therapist evaluation and treatment, patient unsteady gait and ataxia were improved. Home health PT and OT was arranged for patient. Patient's acute delirium was resolved, patient's mental status returned to his baseline. - ALLERGIES Allergies/Adverse Reactions: Allergies Allergy/AdvReac Type Severity Reaction Status Date / Time Penicillins Allergy Itching Verified 05/01/21 15:11 - MEDICATIONS Home Medications: Ambulatory Orders Medication Instructions Recorded Confirmed Tamsulosin [Flomax] 0.4 mg PO QPM 02/05/16 05/02/21 Flecainide [Tambocar] 50 mg PO BID 07/22/19 05/02/21 Rivaroxaban [Xarelto] 20 mg PO QDDINNER 07/23/19 05/02/21 Omeprazole 20 mg PO DAILY 08/28/19 05/02/21 Furosemide [Lasix] 20 mg PO DAILY 05/02/21 05/02/21 Sucralfate [Carafate] 1 gm PO BID 05/02/21 05/02/21 Atorvastatin [Lipitor] 40 mg PO QPM #30 tablet 05/04/21 lisinopriL [Zestril] 10 mg PO DAILY #60 tablet 05/04/21 - LABS Result Diagrams: 05/04/21 06:12 05/04/21 06:12 - FOLLOW UP Follow Up: Your mental status has improved and return to your baseline. You were admitted to the hospital because of a fall and poor balance which made us concerned for a potential stroke. We obtained an MRI of your brain which showed Tiny size stroke at your right brain. It was noted during this hospitalization that your heart rate has been low in the 40s and 50s. You are on diltiazem which can lower your heart rate and we are concerned this may be causing you to fall and so we recommend discontinuing the diltiazem. We have started you on another medication Lisinopril given your blood pressure has been elevated.Your home medication Lipitor dosage is also increased to 40 mg daily. You may resume your Xarelto as neurologist's recommendation. You may followup with neurologist as out-pt. Home health PT and OT are arranged for you. Your CT scan of the chest show increased size of nodule in your right lung, you may follow-up with your PCP and oncologist as out-pt and You may have PET/CT to assess for neoplasm. Please stop taking the diltiazem as I am concerned this may be lowering your heart rate too much. You will need to follow-up with your primary care physician to monitor your heart rate and they can consider resuming this in the future. I have prescribed you a new medication called Lisinopril to help control your blood pressure. It is important that you ambulate with a walker to decrease your risk of falls. We have recommended Home health physical therapy And occupational therapy for you. You will need follow-up with your primary care physician in 1 week and a neurology referral is recommended. You should also follow-up with your mine analyst given your heart rate has been low at times, Follow-up with oncologist for assessment of your lung nodules - TIME SPENT Time Spent in Discharge (Minutes): 30
[2021-05-04 13:34] VITALS: BP 149/57
== END 2021-05-04 14:07 | disposition home health service (06) | DRG 65 ==
LOC: ED 15:03 → MS2 18:11
PROVIDERS: ADMIT Specialist; ATTEND Nurse Practitioner Gerontology
DX: I63.89 Other cerebral infarction (principal); I48.20 Chronic atrial fibrillation, unspecified; W18.39XA Other fall on same level, initial encounter; R26.0 Ataxic gait; R41.89 Other symptoms and signs involving cognitive functions and awareness; R27.0 Ataxia, unspecified; R41.0 Disorientation, unspecified; N40.0 Benign prostatic hyperplasia without lower urinary tract symptoms; Z91.81 History of falling; Z20.822 Contact with and (suspected) exposure to COVID-19; I10 Essential (primary) hypertension; R41.3 Other amnesia; R00.1 Bradycardia, unspecified; I44.0 Atrioventricular block, first degree; R91.8 Other nonspecific abnormal finding of lung field; N40.1 Benign prostatic hyperplasia with lower urinary tract symptoms; R33.8 Other retention of urine; R35.1 Nocturia; H54.7 Unspecified visual loss; H91.90 Unspecified hearing loss, unspecified ear; S00.93XA Contusion of unspecified part of head, initial encounter; W01.0XXA Fall on same level from slipping, tripping and stumbling without subsequent striking against object, initial encounter; Y93.K1 Activity, walking an animal; Y92.480 Sidewalk as the place of occurrence of the external cause; Z79.899 Other long term (current) drug therapy; Z79.01 Long term (current) use of anticoagulants; Z96.659 Presence of unspecified artificial knee joint; Z96.89 Presence of other specified functional implants; Z86.73 Personal history of transient ischemic attack (TIA), and cerebral infarction without residual deficits; I48.0 Paroxysmal atrial fibrillation
CPT/HCPCS: 36415; 70450; 70496; 70498; 70551; 71260; 80048; 80061; 81001; 82607; 82746; 83036; 83090; 83921; 85025; 85610; 87631; 93306; 97116; 97162; 97165; 99284; 99285; A9270; Q0162; Q9967; 0202U; 83721; 87086

== ENCOUNTER 2021-05-04 18:13 | Outpatient (CLI) | payer MEDICARE, OTHER | END 2021-05-04 18:14 | disposition short-term general hospital (02) | LOC: EMS 18:13 | DX: R55 Syncope and collapse (principal); R00.1 Bradycardia, unspecified; I95.9 Hypotension, unspecified | CPT/HCPCS: A0425; A0427 ==

== ENCOUNTER 2021-10-19 19:53 | Outpatient (CLI) | payer MEDICARE, OTHER | END 2021-10-19 19:54 | disposition short-term general hospital (02) | LOC: EMS 19:53 | DX: R41.82 Altered mental status, unspecified (principal); R53.1 Weakness; R32 Unspecified urinary incontinence; R25.1 Tremor, unspecified; R55 Syncope and collapse; W18.39XA Other fall on same level, initial encounter | CPT/HCPCS: A0425; A0427 ==

== ENCOUNTER 2021-11-21 10:49 | Outpatient (CLI) | payer MEDICARE, OTHER ==
[2021-11-21 14:41] LABS: BILIRUBIN,URINE NEGATIVE (NEGATIVE); CLARITY,URINE CLEAR (CLEAR); GLUCOSE, URINE (UA) NEGATIVE (NEGATIVE); KETONES,URINE (UA) NEGATIVE (NEGATIVE); LEUKOCYTE ESTERASE, URINE NEGATIVE (NEGATIVE); NITRITE,URINE NEGATIVE (NEGATIVE); OCCULT BLOOD,URINE NEGATIVE (NEGATIVE); PH,URINE 6.5 PH (5.0-7.5); PROTEIN,URINE NEGATIVE (NEGATIVE); UROBILINOGEN,URINE 0.2 (NORMAL) E.U./dL (NORMAL)
[2021-11-21 14:53] LABS: BACTERIA,URINE Rare /HPF (None Seen); RBC,URINE None Seen /HPF (0-5); SQUAMOUS EPITHELIAL CELL,UR RARE Squamous (<= Few); WBC,URINE 0-3 /HPF (0-3)
== END 2021-11-21 10:50 | disposition home or self-care (01) ==
LOC: LAB.S 10:49
PROVIDERS: ATTEND Psychiatry & Neurology Neurology
DX: G93.40 Encephalopathy, unspecified (principal); R44.1 Visual hallucinations
CPT/HCPCS: 81001

== ENCOUNTER 2021-12-25 14:35 | Outpatient (CLI) | payer MEDICARE, OTHER | END 2021-12-25 14:36 | disposition EMS.NT | LOC: EMS 14:35 | DX: S00.81XA Abrasion of other part of head, initial encounter (principal); S60.512A Abrasion of left hand, initial encounter; S60.511A Abrasion of right hand, initial encounter; W01.198A Fall on same level from slipping, tripping and stumbling with subsequent striking against other object, initial encounter; Y93.K1 Activity, walking an animal; Y92.838 Other recreation area as the place of occurrence of the external cause ==

== ENCOUNTER 2022-01-11 13:23 | Outpatient (CLI) | payer MEDICARE, OTHER | END 2022-01-11 13:24 | disposition EMS.NT | LOC: EMS 13:23 | DX: Z03.89 Encounter for observation for other suspected diseases and conditions ruled out (principal) ==

== ENCOUNTER → 2022-07-04 | Outpatient (CLI) | payer MEDICARE, OTHER | END | disposition short-term general hospital (02) | LOC: EMS 09:43 | DX: R50.9 Fever, unspecified (principal); R41.82 Altered mental status, unspecified; M25.511 Pain in right shoulder; Z98.890 Other specified postprocedural states | CPT/HCPCS: A0425; A0427 ==